=== PATIENT | male | born 1955 | race Caucasian/White ===

== ENCOUNTER 2018-12-12 22:02 | Emergency (ER) | payer OTHER ==
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
[2018-12-12] MEDS ORDERED: Sodium Chloride 0.9% 10 ML Syringe FLUSH PRN (23:31)
[2018-12-12] MEDS ORDERED: Furosemide 40 MG/4 ML VIAL IVPUSH ONE (23:31)
--- NOTE | 2018-12-12 23:31 | CRLCR ---
INDICATION: Shortness of breath and cough. TECHNIQUE: Chest 2 views COMPARISON: Chest x-ray 05/13/2007 FINDINGS: Cardiovascular and mediastinum: Heart size and vasculature are normal in caliber and appearance. Lungs and pleural spaces: Mild reticular interstitial prominence bilaterally as well as slight patchy and linear bibasilar airspace disease. Bones and soft tissues: No significant findings. IMPRESSION: Reticular interstitial prominence and patchy bibasilar airspace disease consistent with atelectasis or pneumonia. Dictated by Dariusz Reyes MD @ Dec 12 2018 11:26PM Signed by Dr. Dariusz Reyes @ Dec 12 2018 11:29PM
[2018-12-13] MEDS ORDERED: Losartan 50 MG Tab PO ONE (00:03)
[2018-12-13] MEDS ORDERED: Azithromycin 250 MG Tab PO ONE (00:04)
== END 2018-12-13 00:45 | disposition home or self-care (01) ==
LOC: JP.ED 22:02
DX: J40 Bronchitis, not specified as acute or chronic (principal); E87.70 Fluid overload, unspecified; E87.1 Hypo-osmolality and hyponatremia; I10 Essential (primary) hypertension; J44.9 Chronic obstructive pulmonary disease, unspecified; E66.01 Morbid (severe) obesity due to excess calories; Z79.899 Other long term (current) drug therapy; Z79.82 Long term (current) use of aspirin; Z68.42 Body mass index [BMI] 45.0-49.9, adult; Z79.51 Long term (current) use of inhaled steroids
CPT/HCPCS: 36415; 71046; 80048; 83880; 84484; 85027; 86140; 96374; 99284; A9270; J1940

== ENCOUNTER 2020-12-23 14:09 | Inpatient (IN) | payer OTHER ==
[2020-12-23] MEDS ORDERED: Sodium Chloride 0.9% 10 ML Syringe FLUSH PRN ×2 (14:13→14:48)
--- NOTE | 2020-12-23 14:33 | CT ---
Head wo Cont CLINICAL HISTORY: CVA COMPARISON: None TECHNIQUE: Transverse scans were obtained from the base of the skull through the vertex without IV contrast on a multislice, multidetector CT scanner. Auto dosage reduction and iterative reconstruction techniques employed. FINDINGS: There is moderate motion artifact despite repeat scanning. No focal abnormal parenchymal density is identified. There are scattered ill-defined hypodensities in the subcortical and periventricular white matter There is no mass effect, hemorrhage, or extraaxial collection. The basal cisterns and sulci over the convexities are prominent. The ventricles are normal for age. IMPRESSION: Very limited study due to motion artifact Age-related atrophy Chronic ischemic microvascular change No acute intracranial process identified
[2020-12-23] MEDS ORDERED: propofoL 100 ML ONE (14:34)
[2020-12-23] MEDS: propofoL 100 ML IV SCH ×4 (14:39→22:54)
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
[2020-12-23] MEDS ORDERED: Sodium Chloride 0.9% 100 ML IV ONE (14:48)
--- NOTE | 2020-12-23 14:48 | CR ---
CHEST: Portable 12/23/2020 at 2:43 PM CLINICAL HISTORY:Hypoxia COMPARISON:CT 2019 FINDINGS: There is moderate diffuse infiltrate in the left lower lobe. There is a lesser infiltrate in the right lower lobe and/or middle lobe. IMPRESSION: Moderate bilateral pneumonias, left greater than right
[2020-12-23] MEDS ORDERED: Heparin Sodium 5,000 Units/ML Vial ONE (14:50)
[2020-12-23] MEDS ORDERED: REMDESIVIR 200 MG in Sodium Chloride 0.9% 250 ML IV ONE (14:56)
[2020-12-23] MEDS ORDERED: Iopamidol 755 Mg/ML 100 ML Bottle IV SCH (15:00)
[2020-12-23] MEDS ORDERED: Dexamethasone 4 MG/ML SDV IVPUSH SCH (15:00)
[2020-12-23] MEDS ORDERED: Propofol 200 MG/20 ML SDV ONE (15:02)
[2020-12-23] MEDS ORDERED: Rocuronium 50 MG/5 ML Vial ONE (15:02)
[2020-12-23] MEDS ORDERED: Succinylcholine 200 MG/10 ML MDV ONE (15:02)
[2020-12-23] MEDS ORDERED: LORazepam 2 MG/ML SDV ONE (15:21)
[2020-12-23] MEDS ORDERED: LORazepam 2 MG/ML SDV IVPUSH ONE (15:26)
--- NOTE | 2020-12-23 15:29 | CR ---
CHEST: Portable 12/23/2020 and 3:24 PM CLINICAL HISTORY:Postintubation COMPARISON:Earlier same day FINDINGS: There is now near complete white out of the left lung. Endotracheal tube is seen in the distal third of the trachea. The tip is approximate 5 cm from the husam. Lesser diffuse right lung infiltrate is seen. Impression: Significant increase in left lung airspace disease with essential whiteout. Some of this is progressive infiltrate but significant volume loss possibly from mucous plugging is a consideration ET tube in good position
[2020-12-23] MEDS ORDERED: Vancomycin 2 GM in Sodium Chloride 0.9% 500 ML IV ONE (15:31)
[2020-12-23] MEDS ORDERED: Norepinephrine 8 MG in Dextrose 5% in Water 250 ML IV SCH ×2 (16:00)
[2020-12-23] MEDS: Norepinephrine 8 MG in Dextrose 5% in Water 242 ML IV SCH ×2 (16:20)
[2020-12-23] MEDS: Heparin Sodium 5,000 UNITS in Sodium Chloride 0.9% 500 ML IV SCH (16:43)
--- NOTE | 2020-12-23 16:52 | PCM.PRNOTE ---
- Free Text/Narrative Note: Date of service: 12/23/2020 Proposed procedure: right internal jugular triple-lumen catheter insertion with US Guidance Indication for procedure: Septic shock Indication: Septic shock, need for vascular access and vasopressor administration This procedure was performed in an emergent situation and consent was not o btained. Barrier precautions: cap, mask with face shield, sterile gown, sterile gloves, sterile US probe cover Description of the procedure: Patient is currently located in [place] [id number]. This is an emergent procedure. The patient was prepped and draped in a sterile fashion. The right internal jugular vein was identified using the linear probe of the ultrasound. Using the Seldinger technique a needle is introduced into the vein under direct visualization with the ultrasound. The wire was then introduced through the needle and the needle was removed. A small didier was made in the skin adjacent to the wire and the dilator probe was introduced over the wire and the tissue was dilated appropriately. The dilator was then removed and the catheter was inserted over the wire. The catheter was inserted to a depth of 17 cm. The wire was then withdrawn. Caps were placed and the ports were flushed. All 3 ports flushed easily. The catheter was sutured to the skin on the right side of the neck. The procedure was completed at this point and the neck was cleaned and a sterile dressing was applied. The patient tolerated the procedure well without any obvious complications. A portable chest x-ray confirmed placement of the tube in the distal superior vena cava. Jaime Austin MD
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
[2020-12-23] MEDS: Vancomycin 2 GM in Sodium Chloride 0.9% 500 ML IV SCH (17:24)
[2020-12-23] MEDS ORDERED: Ondansetron 4 MG Tab.DIS PO PRN (17:31)
[2020-12-23] MEDS ORDERED: Acetaminophen 325 MG Tab PO PRN (17:31)
[2020-12-23] MEDS ORDERED: Acetaminophen 650 MG Supp RECTAL PRN (17:31)
[2020-12-23] MEDS ORDERED: LORazepam 2 MG/ML SDV IVPUSH PRN (17:31)
[2020-12-23] MEDS ORDERED: Ondansetron 4 MG/2 ML SDV IV PRN (17:31)
[2020-12-23] MEDS ORDERED: fentaNYL 100 MCG/2 ML SDV IVPUSH PRN (17:31)
[2020-12-23] MEDS: Dimethicone 20%/Zinc Oxide 25% 56 GM Spray Bottle TOP PRN (18:49)
[2020-12-23] MEDS ORDERED: Levofloxacin/Dextrose 5%-Water 750 MG in Premix Bag 1 BAG IV SCH (20:00)
[2020-12-23] MEDS: Enoxaparin 40 MG/0.4 ML Syringe SUBCUT SCH (21:10)
[2020-12-23] MEDS: Pantoprazole 40 MG Vial IV SCH (21:11)
--- NOTE | 2020-12-23 22:55 | ANES ---
DATE OF SERVICE: 12/23/2020 INDICATION: Kulwant is a 65-year-old male, patient of Dr. Goodman Officer, in our emergency department in respiratory arrest. As stated before, he is in respiratory arrest, unable to respond to me at this time. Upon arrival, I find a 65-year-old, very obese male with significant skin lesions and definite abdominal hernia, in respiratory distress. TECHNIQUE: I prepared with the high oxygen flow, intubated him with a MAC 3 blade and #8 endotracheal tube to 24 at the lip that was secured prior to intubation. I noticed copious amount of multicolored sputum as well as dry blood in the airway. I had dosed him with 120 mg of propofol and 30 mg of Zemuron. After the tube was secured, I proceeded on to left radial art line. Site was cleansed and prepped in sterile fashion. A 20-gauge arterial catheter was placed to the left radial artery and secured with 2 Vicryl stitch. Good blood flow. It was then taped to the wrist with a Tegaderm placed over. He tolerated both procedures quite well. Please refer to nurse's notes for vital signs and neuro status throughout the procedure. Hugo Payne CRNA /[id number]
[2020-12-23] MEDS ORDERED: Sodium Chloride 0.9% 500 ML IV SCH (23:45)
[2020-12-23] MEDS ORDERED: Vasopressin 100 UNITS in Dextrose 5% in Water 250 ML IV SCH ×2 (23:45)
[2020-12-24] MEDS: propofoL 100 ML IV SCH ×8 (01:54→23:51)
[2020-12-24] MEDS: Vancomycin 2 GM in Sodium Chloride 0.9% 500 ML IV SCH (04:56)
[2020-12-24] MEDS ORDERED: Vancomycin 2 GM in Sodium Chloride 0.9% 500 ML IV SCH (05:00)
[2020-12-24] MEDS: Norepinephrine 8 MG in Dextrose 5% in Water 242 ML IV SCH ×2 (06:12)
[2020-12-24] MEDS: Sodium Chloride 0.9% 1,000 ML IV SCH (06:13)
[2020-12-24] MEDS: Pantoprazole 40 MG Vial IV SCH ×2 (08:42→20:31)
[2020-12-24] MEDS: Dimethicone 20%/Zinc Oxide 25% 56 GM Spray Bottle TOP PRN (09:24)
--- NOTE | 2020-12-24 09:49 | PCM.PN ---
- General Info Date of Service: 12/24/20 Subjective Update: No acute events overnight following intubation. FiO2 has been steadily weaned down overnight. He did require 2 vasopressors for a while but we have been able to start to wean these off. Urine output has been minimal. CVP is running between 12 and 15. He has not had any fevers. Secretions are decreasing. Gram stain of the respiratory sample from the endotracheal aspirate revealed gram- negative rods with culture pending. Creatinine has jumped up to 2.9 today. - Review of Systems General: Denies: Fever - Patient Data Vitals - Most Recent: Last Vital Signs Temp 36.4 C 12/24/20 09:00 Pulse 71 12/24/20 09:00 Resp 17 12/24/20 09:00 BP 120/49 L 12/24/20 09:00 Pulse Ox 97 12/24/20 09:00 Weight - Most Recent: 146.828 kg I&O - Last 24 Hours: Intake & Output 12/23/20 12/24/20 12/24/20 22:59 06:59 14:59 Intake Total 2191 50 Output Total 75 0 Balance 2116 50 Lab Results Last 24 Hours: Laboratory Results - last 24 hr 12/23/20 12/23/20 12/23/20 Range/Units 04:55 04:55 14:17 WBC (4.5-11.0) K/uL RBC (4.30-5.90) M/uL Hgb (12.0-15.0) g/dL Hct (40.0-54.0) % MCV (80-98) fL MCH (27-31) pg MCHC (32-36) % Plt Count (150-400) K/uL Add Manual Diff Neutrophils % (Manual) (36-66) % Band Neutrophils % (5-11) % Lymphocytes % (Manual) (24-44) % Monocytes % (Manual) (2-6) % Eosinophils % (Manual) (2-4) % Puncture Site left radial ABG pH 7.395 (7.350-7.450) ABG pCO2 37.9 (35.0-42.0) mmHg ABG pO2 42.2 L* (75.0-100.0) mmHg ABG HCO3 22.7 (22.0-26.0) mmol/L ABG Total CO2 20.1 L (23.0-27.0) mmol/L ABG O2 Saturation 73.0 L (95.0-98.0) % ABG O2 Content 14.4 L (15.0-23.0) %vol ABG Base Excess -1.3 mm/L ABG Hemoglobin 14.3 (13.5-18.0) g/dL ABG Oxyhemoglobin 71.8 % ABG Carboxyhemoglobin 1.0 (0.0-1.6) % ABG Methemoglobin 0.7 % Fredrick Test passed O2 Delivery Device Simple mask Oxygen Flow Rate L Sodium (140-148) mmol/L Potassium (3.6-5.2) mmol/L Chloride (100-108) mmol/L Carbon Dioxide (21-32) mmol/L Anion Gap (5.0-14.0) mmol/L BUN (7-18) mg/dL Creatinine (0.8-1.3) mg/dL Est Cr Clr Drug Dosing mL/min Estimated GFR (MDRD) (>60) Glucose (74-106) mg/dL Lactic Acid (0.4-2.0) mmol/L Calcium (8.5-10.1) mg/dL Total Bilirubin (0.2-1.0) mg/dL AST (15-37) U/L ALT (12-78) U/L Alkaline Phosphatase (46-116) U/L Creatine Kinase (39-308) U/L Troponin I (0.000-0.056) ng/mL C-Reactive Protein > 25.00 H (0.0-0.3) mg/dL Total Protein (6.4-8.2) g/dL Albumin (3.4-5.0) g/dL Globulin (2.3-3.5) g/dL Albumin/Globulin Ratio (1.2-2.2) Procalcitonin 5.69 H* ng/mL Urine Color (YELLOW) Urine Appearance (CLEAR) Urine pH (5.0-8.0) Ur Specific [place] (1.008-1.030) Urine Protein (NEGATIVE) mg/dL Urine Glucose (UA) (NEGATIVE) mg/dL Urine Ketones (NEGATIVE) mg/dL Urine Occult Blood (NEGATIVE) Urine Nitrite (NEGATIVE) Urine Bilirubin (NEGATIVE) Urine Urobilinogen (0.2-1.0) EU/dL Ur Leukocyte Esterase (NEGATIVE) Urine RBC (0-5) Urine WBC (0-5) Ur Epithelial Cells Amorphous Sediment Urine Bacteria Urine Mucus SARS CoV-2 RNA Rapid PARKER 12/23/20 12/23/20 12/23/20 Range/Units 14:45 14:45 14:45 WBC 16.4 H (4.5-11.0) K/uL RBC 4.68 (4.30-5.90) M/uL Hgb 14.2 (12.0-15.0) g/dL Hct 43.5 (40.0-54.0) % MCV 93 (80-98) fL MCH 30 (27-31) pg MCHC 33 (32-36) % Plt Count 115 L (150-400) K/uL Add Manual Diff Yes Neutrophils % (Manual) 86 H (36-66) % Band Neutrophils % 4 L (5-11) % Lymphocytes % (Manual) 4 L (24-44) % Monocytes % (Manual) 4 (2-6) % Eosinophils % (Manual) 2 (2-4) % Puncture Site ABG pH (7.350-7.450) ABG pCO2 (35.0-42.0) mmHg ABG pO2 (75.0-100.0) mmHg ABG HCO3 (22.0-26.0) mmol/L ABG Total CO2 (23.0-27.0) mmol/L ABG O2 Saturation (95.0-98.0) % ABG O2 Content (15.0-23.0) %vol ABG Base Excess mm/L ABG Hemoglobin (13.5-18.0) g/dL ABG Oxyhemoglobin % ABG Carboxyhemoglobin (0.0-1.6) % ABG Methemoglobin % Fredrick Test O2 Delivery Device Oxygen Flow Rate L Sodium 145 (140-148) mmol/L Potassium 4.6 (3.6-5.2) mmol/L Chloride 109 H (100-108) mmol/L Carbon Dioxide 23 (21-32) mmol/L Anion Gap 17.6 H (5.0-14.0) mmol/L BUN 38 H D (7-18) mg/dL Creatinine 1.5 H (0.8-1.3) mg/dL Est Cr Clr Drug Dosing 56.32 mL/min Estimated GFR (MDRD) 47 L (>60) Glucose 169 H (74-106) mg/dL Lactic Acid 2.6 H (0.4-2.0) mmol/L Calcium 8.3 L (8.5-10.1) mg/dL Total Bilirubin 0.7 (0.2-1.0) mg/dL AST 76 H (15-37) U/L ALT 48 (12-78) U/L Alkaline Phosphatase 74 (46-116) U/L Creatine Kinase (39-308) U/L Troponin I 0.029 (0.000-0.056) ng/mL C-Reactive Protein (0.0-0.3) mg/dL Total Protein 7.6 (6.4-8.2) g/dL Albumin 2.3 L (3.4-5.0) g/dL Globulin 5.3 H (2.3-3.5) g/dL Albumin/Globulin Ratio 0.4 L (1.2-2.2) Procalcitonin ng/mL Urine Color (YELLOW) Urine Appearance (CLEAR) Urine pH (5.0-8.0) Ur Specific [place] (1.008-1.030) Urine Protein (NEGATIVE) mg/dL Urine Glucose (UA) (NEGATIVE) mg/dL Urine Ketones (NEGATIVE) mg/dL Urine Occult Blood (NEGATIVE) Urine Nitrite (NEGATIVE) Urine Bilirubin (NEGATIVE) Urine Urobilinogen (0.2-1.0) EU/dL Ur Leukocyte Esterase (NEGATIVE) Urine RBC (0-5) Urine WBC (0-5) Ur Epithelial Cells Amorphous Sediment Urine Bacteria Urine Mucus SARS CoV-2 RNA Rapid PARKER 12/23/20 12/23/20 12/23/20 Range/Units 14:46 15:54 16:37 WBC (4.5-11.0) K/uL RBC (4.30-5.90) M/uL Hgb (12.0-15.0) g/dL Hct (40.0-54.0) % MCV (80-98) fL MCH (27-31) pg MCHC (32-36) % Plt Count (150-400) K/uL Add Manual Diff Neutrophils % (Manual) (36-66) % Band Neutrophils % (5-11) % Lymphocytes % (Manual) (24-44) % Monocytes % (Manual) (2-6) % Eosinophils % (Manual) (2-4) % Puncture Site line ABG pH 7.329 L (7.350-7.450) ABG pCO2 44.1 H (35.0-42.0) mmHg ABG pO2 98.4 (75.0-100.0) mmHg ABG HCO3 22.5 (22.0-26.0) mmol/L ABG Total CO2 20.4 L (23.0-27.0) mmol/L ABG O2 Saturation 96.4 (95.0-98.0) % ABG O2 Content 17.8 (15.0-23.0) %vol ABG Base Excess -2.9 mm/L ABG Hemoglobin 13.3 L (13.5-18.0) g/dL ABG Oxyhemoglobin 94.5 % ABG Carboxyhemoglobin 1.3 (0.0-1.6) % ABG Methemoglobin 0.7 % Fredrick Test tnp O2 Delivery Device Ventilator Oxygen Flow Rate 100.0 L Sodium (140-148) mmol/L Potassium (3.6-5.2) mmol/L Chloride (100-108) mmol/L Carbon Dioxide (21-32) mmol/L Anion Gap (5.0-14.0) mmol/L BUN (7-18) mg/dL Creatinine (0.8-1.3) mg/dL Est Cr Clr Drug Dosing mL/min Estimated GFR (MDRD) (>60) Glucose (74-106) mg/dL Lactic Acid (0.4-2.0) mmol/L Calcium (8.5-10.1) mg/dL Total Bilirubin (0.2-1.0) mg/dL AST (15-37) U/L ALT (12-78) U/L Alkaline Phosphatase (46-116) U/L Creatine Kinase (39-308) U/L Troponin I (0.000-0.056) ng/mL C-Reactive Protein (0.0-0.3) mg/dL Total Protein (6.4-8.2) g/dL Albumin (3.4-5.0) g/dL Globulin (2.3-3.5) g/dL Albumin/Globulin Ratio (1.2-2.2) Procalcitonin ng/mL Urine Color [place] A (YELLOW) Urine Appearance Slightly cloudy A (CLEAR) Urine pH 6.0 (5.0-8.0) Ur Specific [place] 1.025 (1.008-1.030) Urine Protein >=300 H (NEGATIVE) mg/dL Urine Glucose (UA) Negative (NEGATIVE) mg/dL Urine Ketones Negative (NEGATIVE) mg/dL Urine Occult Blood Large H (NEGATIVE) Urine Nitrite Negative (NEGATIVE) Urine Bilirubin Small H (NEGATIVE) Urine Urobilinogen 0.2 (0.2-1.0) EU/dL Ur Leukocyte Esterase Negative (NEGATIVE) Urine RBC 5-10 H (0-5) Urine WBC 5-10 H (0-5) Ur Epithelial Cells Moderate Amorphous Sediment Few Urine Bacteria Many Urine Mucus Moderate SARS CoV-2 RNA Rapid PARKER Positive H 12/23/20 12/23/20 12/23/20 Range/Units 16:37 17:00 19:00 WBC (4.5-11.0) K/uL RBC (4.30-5.90) M/uL Hgb (12.0-15.0) g/dL Hct (40.0-54.0) % MCV (80-98) fL MCH (27-31) pg MCHC (32-36) % Plt Count (150-400) K/uL Add Manual Diff Neutrophils % (Manual) (36-66) % Band Neutrophils % (5-11) % Lymphocytes % (Manual) (24-44) % Monocytes % (Manual) (2-6) % Eosinophils % (Manual) (2-4) % Puncture Site Line ABG pH 7.282 L (7.350-7.450) ABG pCO2 47.2 H (35.0-42.0) mmHg ABG pO2 99.4 (75.0-100.0) mmHg ABG HCO3 21.5 L (22.0-26.0) mmol/L ABG Total CO2 19.8 L (23.0-27.0) mmol/L ABG O2 Saturation 96.0 (95.0-98.0) % ABG O2 Content 17.2 (15.0-23.0) %vol ABG Base Excess -4.8 mm/L ABG Hemoglobin 12.8 L (13.5-18.0) g/dL ABG Oxyhemoglobin 94.6 % ABG Carboxyhemoglobin 0.6 (0.0-1.6) % ABG Methemoglobin 0.9 % Fredrick Test TNP O2 Delivery Device Ventilator Oxygen Flow Rate L Sodium (140-148) mmol/L Potassium (3.6-5.2) mmol/L Chloride (100-108) mmol/L Carbon Dioxide (21-32) mmol/L Anion Gap (5.0-14.0) mmol/L BUN (7-18) mg/dL Creatinine (0.8-1.3) mg/dL Est Cr Clr Drug Dosing mL/min Estimated GFR (MDRD) (>60) Glucose (74-106) mg/dL Lactic Acid 1.7 (0.4-2.0) mmol/L Calcium (8.5-10.1) mg/dL Total Bilirubin (0.2-1.0) mg/dL AST (15-37) U/L ALT (12-78) U/L Alkaline Phosphatase (46-116) U/L Creatine Kinase 463 H (39-308) U/L Troponin I (0.000-0.056) ng/mL C-Reactive Protein (0.0-0.3) mg/dL Total Protein (6.4-8.2) g/dL Albumin (3.4-5.0) g/dL Globulin (2.3-3.5) g/dL Albumin/Globulin Ratio (1.2-2.2) Procalcitonin ng/mL Urine Color (YELLOW) Urine Appearance (CLEAR) Urine pH (5.0-8.0) Ur Specific [place] (1.008-1.030) Urine Protein (NEGATIVE) mg/dL Urine Glucose (UA) (NEGATIVE) mg/dL Urine Ketones (NEGATIVE) mg/dL Urine Occult Blood (NEGATIVE) Urine Nitrite (NEGATIVE) Urine Bilirubin (NEGATIVE) Urine Urobilinogen (0.2-1.0) EU/dL Ur Leukocyte Esterase (NEGATIVE) Urine RBC (0-5) Urine WBC (0-5) Ur Epithelial Cells Amorphous Sediment Urine Bacteria Urine Mucus SARS CoV-2 RNA Rapid PARKER 12/23/20 12/24/20 12/24/20 Range/Units 21:00 00:25 05:00 WBC (4.5-11.0) K/uL RBC (4.30-5.90) M/uL Hgb (12.0-15.0) g/dL Hct (40.0-54.0) % MCV (80-98) fL MCH (27-31) pg MCHC (32-36) % Plt Count (150-400) K/uL Add Manual Diff Neutrophils % (Manual) (36-66) % Band Neutrophils % (5-11) % Lymphocytes % (Manual) (24-44) % Monocytes % (Manual) (2-6) % Eosinophils % (Manual) (2-4) % Puncture Site art line Line Line ABG pH 7.270 L 7.301 L 7.284 L (7.350-7.450) ABG pCO2 46.5 H 39.8 41.1 (35.0-42.0) mmHg ABG pO2 117.0 H 170.0 H 83.1 (75.0-100.0) mmHg ABG HCO3 20.7 L 19.1 L 18.9 L (22.0-26.0) mmol/L ABG Total CO2 19.1 L 17.5 L 17.4 L (23.0-27.0) mmol/L ABG O2 Saturation 97.5 98.8 H 95.1 (95.0-98.0) % ABG O2 Content 17.4 17.7 16.9 (15.0-23.0) %vol ABG Base Excess -5.8 -6.4 -6.9 mm/L ABG Hemoglobin 12.8 L 12.7 L 12.9 L (13.5-18.0) g/dL ABG Oxyhemoglobin 95.8 97.2 93.1 % ABG Carboxyhemoglobin 0.6 0.8 1.2 (0.0-1.6) % ABG Methemoglobin 1.1 0.8 0.9 % Fredrick Test N/a O2 Delivery Device Ventilator Ventilator Ventilator Oxygen Flow Rate L Sodium (140-148) mmol/L Potassium (3.6-5.2) mmol/L Chloride (100-108) mmol/L Carbon Dioxide (21-32) mmol/L Anion Gap (5.0-14.0) mmol/L BUN (7-18) mg/dL Creatinine (0.8-1.3) mg/dL Est Cr Clr Drug Dosing mL/min Estimated GFR (MDRD) (>60) Glucose (74-106) mg/dL Lactic Acid (0.4-2.0) mmol/L Calcium (8.5-10.1) mg/dL Total Bilirubin (0.2-1.0) mg/dL AST (15-37) U/L ALT (12-78) U/L Alkaline Phosphatase (46-116) U/L Creatine Kinase (39-308) U/L Troponin I (0.000-0.056) ng/mL C-Reactive Protein (0.0-0.3) mg/dL Total Protein (6.4-8.2) g/dL Albumin (3.4-5.0) g/dL Globulin (2.3-3.5) g/dL Albumin/Globulin Ratio (1.2-2.2) Procalcitonin ng/mL Urine Color (YELLOW) Urine Appearance (CLEAR) Urine pH (5.0-8.0) Ur Specific [place] (1.008-1.030) Urine Protein (NEGATIVE) mg/dL Urine Glucose (UA) (NEGATIVE) mg/dL Urine Ketones (NEGATIVE) mg/dL Urine Occult Blood (NEGATIVE) Urine Nitrite (NEGATIVE) Urine Bilirubin (NEGATIVE) Urine Urobilinogen (0.2-1.0) EU/dL Ur Leukocyte Esterase (NEGATIVE) Urine RBC (0-5) Urine WBC (0-5) Ur Epithelial Cells Amorphous Sediment Urine Bacteria Urine Mucus SARS CoV-2 RNA Rapid PARKER 12/24/20 12/24/20 12/24/20 Range/Units 05:00 05:00 05:00 WBC 23.5 H (4.5-11.0) K/uL RBC 4.33 (4.30-5.90) M/uL Hgb 12.6 (12.0-15.0) g/dL Hct 41.4 (40.0-54.0) % MCV 96 (80-98) fL MCH 29 (27-31) pg MCHC 30 L (32-36) % Plt Count 287 (150-400) K/uL Add Manual Diff Neutrophils % (Manual) (36-66) % Band Neutrophils % (5-11) % Lymphocytes % (Manual) (24-44) % Monocytes % (Manual) (2-6) % Eosinophils % (Manual) (2-4) % Puncture Site ABG pH (7.350-7.450) ABG pCO2 (35.0-42.0) mmHg ABG pO2 (75.0-100.0) mmHg ABG HCO3 (22.0-26.0) mmol/L ABG Total CO2 (23.0-27.0) mmol/L ABG O2 Saturation (95.0-98.0) % ABG O2 Content (15.0-23.0) %vol ABG Base Excess mm/L ABG Hemoglobin (13.5-18.0) g/dL ABG Oxyhemoglobin % ABG Carboxyhemoglobin (0.0-1.6) % ABG Methemoglobin % Fredrick Test O2 Delivery Device Oxygen Flow Rate L Sodium 142 (140-148) mmol/L Potassium 4.8 (3.6-5.2) mmol/L Chloride 108 (100-108) mmol/L Carbon Dioxide 19 L (21-32) mmol/L Anion Gap 19.8 H (5.0-14.0) mmol/L BUN 52 H (7-18) mg/dL Creatinine 2.9 H D (0.8-1.3) mg/dL Est Cr Clr Drug Dosing 29.14 mL/min Estimated GFR (MDRD) 22 L (>60) Glucose 204 H (74-106) mg/dL Lactic Acid 1.2 (0.4-2.0) mmol/L Calcium 7.9 L (8.5-10.1) mg/dL Total Bilirubin (0.2-1.0) mg/dL AST (15-37) U/L ALT (12-78) U/L Alkaline Phosphatase (46-116) U/L Creatine Kinase (39-308) U/L Troponin I < 0.017 (0.000-0.056) ng/mL C-Reactive Protein (0.0-0.3) mg/dL Total Protein (6.4-8.2) g/dL Albumin (3.4-5.0) g/dL Globulin (2.3-3.5) g/dL Albumin/Globulin Ratio (1.2-2.2) Procalcitonin ng/mL Urine Color (YELLOW) Urine Appearance (CLEAR) Urine pH (5.0-8.0) Ur Specific [place] (1.008-1.030) Urine Protein (NEGATIVE) mg/dL Urine Glucose (UA) (NEGATIVE) mg/dL Urine Ketones (NEGATIVE) mg/dL Urine Occult Blood (NEGATIVE) Urine Nitrite (NEGATIVE) Urine Bilirubin (NEGATIVE) Urine Urobilinogen (0.2-1.0) EU/dL Ur Leukocyte Esterase (NEGATIVE) Urine RBC (0-5) Urine WBC (0-5) Ur Epithelial Cells Amorphous Sediment Urine Bacteria Urine Mucus SARS CoV-2 RNA Rapid PARKER Juan Results Last 24 Hours: Microbiology 12/23/20 18:43 Gram Stain - Final Sputum - Other Med Orders - Current: Current Medications Acetaminophen (Acetaminophen 325 Mg Tab) 650 mg PO Q4H PRN PRN Reason: Pain (Mild 1-3)/fever Acetaminophen (Acetaminophen 650 Mg Supp) 650 mg RECTAL Q4H PRN PRN Reason: Mild pain/fever Dexamethasone (Dexamethasone 4 Mg/Ml Sdv) 6 mg IVPUSH Q24H [facility] Stop: 01/01/21 16:01 Dimethicone/Zinc Oxide (Dimethicone 20%/Zinc Oxide 25% 56 Gm [place] Bottle) 0 gm TOP ASDIRECTED PRN PRN Reason: Rash Last Admin: 12/24/20 09:24 Dose: 1 applic Documented by: Enoxaparin Sodium (Enoxaparin 40 Mg/0.4 Ml Syringe) 40 mg SUBCUT Q24H [facility] Last Admin: 12/23/20 21:10 Dose: 40 mg Documented by: Fentanyl (Fentanyl 100 Mcg/2 Ml Sdv) 25 mcg IVPUSH Q2H PRN PRN Reason: Pain Propofol (Diprivan 100 Ml) 100 mls @ 3.81 mls/hr IV TITRATE [facility]; Protocol Last Admin: 12/24/20 08:10 Dose: 40 mcg/kg/min, 30.481 mls/hr Documented by: Norepinephrine Bitartrate 8 mg (/ Dextrose/Water) 250 mls @ 3.75 mls/hr IV TITRATE [facility]; Protocol Last Infusion: 12/24/20 08:09 Dose: 7 mcg/min, 13.125 mls/hr Documented by: Heparin Sodium (Porcine) 5,000 (units/ Sodium Chloride) 501 mls @ 1 mls/hr IV ASDIRECTED [facility] Last Admin: 12/23/20 16:43 Dose: 1 mls/hr Documented by: Sodium Chloride (Normal Saline) 1,000 mls @ 25 mls/hr IV ASDIRECTED [facility] Last Admin: 12/24/20 06:13 Dose: 25 mls/hr Documented by: Vasopressin 100 units/ (Dextrose/Water) 255 mls @ 1.53 mls/hr IV TITRATE [facility]; Protocol Last Titration: 12/24/20 05:15 Dose: 0.01 units/min, 1.53 mls/hr Documented by: Ceftazidime 1 gm/ Sodium (Chloride) 50 mls @ 100 mls/hr IV Q12H [facility] Levofloxacin/Dextrose 750 mg/ (Premix) 150 mls @ 100 mls/hr IV Q48H [facility] Vancomycin HCl 2 gm/ Sodium (Chloride) 500 mls @ 250 mls/hr IV Q24H [facility] Heparin Sodium (Porcine) 5,000 (units/ Sodium Chloride) 501 mls @ 1 mls/hr IV ASDIRECTED [facility] Lorazepam (Lorazepam 2 Mg/Ml Sdv) 0.5 mg IVPUSH Q4H PRN PRN Reason: Nausea/Vomiting Ondansetron HCl (Ondansetron 4 Mg/2 Ml Sdv) 4 mg IV Q6H PRN PRN Reason: Nausea/Vomiting Ondansetron HCl (Ondansetron 4 Mg Tab.Dis) 4 mg PO Q6H PRN PRN Reason: Nausea able to take PO Pantoprazole Sodium (Pantoprazole 40 Mg Vial) 40 mg IV Q12H [facility] Last Admin: 12/24/20 08:42 Dose: 40 mg Documented by: Sodium Chloride (Sodium Chloride 0.9% 10 Ml Syringe) 10 ml FLUSH ASDIRECTED PRN PRN Reason: Keep Vein Open Discontinued Medications Dexamethasone (Dexamethasone 4 Mg/Ml Sdv) 6 mg IVPUSH DAILY [facility] Stop: 01/01/21 09:01 Last Admin: 12/23/20 16:32 Dose: 6 mg Documented by: Heparin Sodium (Porcine) (Heparin Sodium 5,000 Units/Ml Vial) Confirm Administered Dose 5,000 units .ROUTE .STK-MED ONE Stop: 12/23/20 14:51 Last Admin: 12/23/20 16:26 Dose: Not Given Documented by: Propofol (Diprivan 100 Ml) Confirm Administered Dose 100 mls @ as directed .ROUTE .STK-MED ONE Stop: 12/23/20 14:35 Last Admin: 12/23/20 14:39 Dose: Not Given Documented by: Sodium Chloride (Normal Saline) 100 mls @ 3 mls/sec IV ONETIME ONE Stop: 12/23/20 14:49 Last Admin: 12/23/20 16:26 Dose: Not Given Documented by: Remdesivir 200 mg/ Sodium (Chloride) 250 mls @ 250 mls/hr IV ONETIME ONE Stop: 12/23/20 14:57 Last Admin: 12/23/20 16:42 Dose: Not Given Documented by: Ceftazidime 1 gm/ Sodium (Chloride) 50 mls @ 100 mls/hr IV Q8H [facility] Stop: 12/24/20 09:30 Last Admin: 12/24/20 07:55 Dose: 100 mls/hr Documented by: Norepinephrine Bitartrate 8 mg (/ Dextrose/Water) 258 mls @ 3.87 mls/hr IV TITRATE [facility]; Protocol Vancomycin HCl 2 gm/ Sodium (Chloride) 500 mls @ 250 mls/hr IV Q12H [facility] Last Admin: 12/24/20 04:56 Dose: 250 mls/hr Documented by: Levofloxacin/Dextrose 750 mg/ (Premix) 150 mls @ 100 mls/hr IV Q24H [facility] Last Admin: 12/23/20 19:48 Dose: 100 mls/hr Documented by: Sodium Chloride (Normal Saline) 500 mls @ 500 mls/hr IV ASDIRECTED [facility] Stop: 12/24/20 00:46 Last Admin: 12/24/20 00:00 Dose: 500 mls/hr Documented by: Iopamidol (Iopamidol 755 Mg/Ml 100 Ml Bottle) 100 ml IV . DIRECTED [facility] Lorazepam (Lorazepam 2 Mg/Ml Sdv) Confirm Administered Dose 2 mg .ROUTE .STK-MED ONE Stop: 12/23/20 15:22 Last Admin: 12/23/20 15:49 Dose: Not Given Documented by: Lorazepam (Lorazepam 2 Mg/Ml Sdv) 2 mg IVPUSH ONETIME ONE Stop: 12/23/20 15:27 Last Admin: 12/23/20 15:28 Dose: 2 mg Documented by: Propofol (Propofol 200 Mg/20 Ml Sdv) Confirm Administered Dose 200 mg .ROUTE .STK-MED ONE Stop: 12/23/20 15:03 Rocuronium [place] (Rocuronium 50 Mg/5 Ml Vial) Confirm Administered Dose 50 mg .ROUTE .STK-MED ONE Stop: 12/23/20 15:03 Sodium Chloride (Sodium Chloride 0.9% 10 Ml Syringe) 10 ml FLUSH ONETIME PRN PRN Reason: PER RADIOLOGY PROTOCOL Succinylcholine Chloride (Succinylcholine 200 Mg/10 Ml Mdv) Confirm Administered Dose 0 mg .ROUTE .STK-MED ONE Stop: 12/23/20 15:03 - Exam Quality Assessment: Supplemental Oxygen Urinary Catheter Total Time: 0Days 9Hours General: No Acute Distress, Sedated. No: Alert HEENT: Pupils Equal Lungs: Decreased Breath Sounds (both bases), Crackles (both bases left > right ). No: Normal Respiratory Effort, Wheezing Cardiovascular: Regular Rate, Regular Rhythm GI/Abdominal Exam: Soft, No Distention, Other (large umbilical hernia ) Extremities: No Pedal Edema. No: Increased Warmth Skin: Warm, Dry, Rash (chronic venous stasis both lower legs) Wound/Incisions: Other (right IJ central line with no erythema or bleeding ) Psy/Mental Status: No: Alert, Agitated - Patient Data Lab Results Last 24 hrs: Laboratory Results - last 24 hr 12/23/20 12/23/20 12/23/20 Range/Units 04:55 04:55 14:17 WBC (4.5-11.0) K/uL RBC (4.30-5.90) M/uL Hgb (12.0-15.0) g/dL Hct (40.0-54.0) % MCV (80-98) fL MCH (27-31) pg MCHC (32-36) % Plt Count (150-400) K/uL Add Manual Diff Neutrophils % (Manual) (36-66) % Band Neutrophils % (5-11) % Lymphocytes % (Manual) (24-44) % Monocytes % (Manual) (2-6) % Eosinophils % (Manual) (2-4) % Puncture Site left radial ABG pH 7.395 (7.350-7.450) ABG pCO2 37.9 (35.0-42.0) mmHg ABG pO2 42.2 L* (75.0-100.0) mmHg ABG HCO3 22.7 (22.0-26.0) mmol/L ABG Total CO2 20.1 L (23.0-27.0) mmol/L ABG O2 Saturation 73.0 L (95.0-98.0) % ABG O2 Content 14.4 L (15.0-23.0) %vol ABG Base Excess -1.3 mm/L ABG Hemoglobin 14.3 (13.5-18.0) g/dL ABG Oxyhemoglobin 71.8 % ABG Carboxyhemoglobin 1.0 (0.0-1.6) % ABG Methemoglobin 0.7 % Fredrick Test passed O2 Delivery Device Simple mask Oxygen Flow Rate L Sodium (140-148) mmol/L Potassium (3.6-5.2) mmol/L Chloride (100-108) mmol/L Carbon Dioxide (21-32) mmol/L Anion Gap (5.0-14.0) mmol/L BUN (7-18) mg/dL Creatinine (0.8-1.3) mg/dL Est Cr Clr Drug Dosing mL/min Estimated GFR (MDRD) (>60) Glucose (74-106) mg/dL Lactic Acid (0.4-2.0) mmol/L Calcium (8.5-10.1) mg/dL Total Bilirubin (0.2-1.0) mg/dL AST (15-37) U/L ALT (12-78) U/L Alkaline Phosphatase (46-116) U/L Creatine Kinase (39-308) U/L Troponin I (0.000-0.056) ng/mL C-Reactive Protein > 25.00 H (0.0-0.3) mg/dL Total Protein (6.4-8.2) g/dL Albumin (3.4-5.0) g/dL Globulin (2.3-3.5) g/dL Albumin/Globulin Ratio (1.2-2.2) Procalcitonin 5.69 H* ng/mL Urine Color (YELLOW) Urine Appearance (CLEAR) Urine pH (5.0-8.0) Ur Specific [place] (1.008-1.030) Urine Protein (NEGATIVE) mg/dL Urine Glucose (UA) (NEGATIVE) mg/dL Urine Ketones (NEGATIVE) mg/dL Urine Occult Blood (NEGATIVE) Urine Nitrite (NEGATIVE) Urine Bilirubin (NEGATIVE) Urine Urobilinogen (0.2-1.0) EU/dL Ur Leukocyte Esterase (NEGATIVE) Urine RBC (0-5) Urine WBC (0-5) Ur Epithelial Cells Amorphous Sediment Urine Bacteria Urine Mucus SARS CoV-2 RNA Rapid PARKER 12/23/20 12/23/20 12/23/20 Range/Units 14:45 14:45 14:45 WBC 16.4 H (4.5-11.0) K/uL RBC 4.68 (4.30-5.90) M/uL Hgb 14.2 (12.0-15.0) g/dL Hct 43.5 (40.0-54.0) % MCV 93 (80-98) fL MCH 30 (27-31) pg MCHC 33 (32-36) % Plt Count 115 L (150-400) K/uL Add Manual Diff Yes Neutrophils % (Manual) 86 H (36-66) % Band Neutrophils % 4 L (5-11) % Lymphocytes % (Manual) 4 L (24-44) % Monocytes % (Manual) 4 (2-6) % Eosinophils % (Manual) 2 (2-4) % Puncture Site ABG pH (7.350-7.450) ABG pCO2 (35.0-42.0) mmHg ABG pO2 (75.0-100.0) mmHg ABG HCO3 (22.0-26.0) mmol/L ABG Total CO2 (23.0-27.0) mmol/L ABG O2 Saturation (95.0-98.0) % ABG O2 Content (15.0-23.0) %vol ABG Base Excess mm/L ABG Hemoglobin (13.5-18.0) g/dL ABG Oxyhemoglobin % ABG Carboxyhemoglobin (0.0-1.6) % ABG Methemoglobin % Fredrick Test O2 Delivery Device Oxygen Flow Rate L Sodium 145 (140-148) mmol/L Potassium 4.6 (3.6-5.2) mmol/L Chloride 109 H (100-108) mmol/L Carbon Dioxide 23 (21-32) mmol/L Anion Gap 17.6 H (5.0-14.0) mmol/L BUN 38 H D (7-18) mg/dL Creatinine 1.5 H (0.8-1.3) mg/dL Est Cr Clr Drug Dosing 56.32 mL/min Estimated GFR (MDRD) 47 L (>60) Glucose 169 H (74-106) mg/dL Lactic Acid 2.6 H (0.4-2.0) mmol/L Calcium 8.3 L (8.5-10.1) mg/dL Total Bilirubin 0.7 (0.2-1.0) mg/dL AST 76 H (15-37) U/L ALT 48 (12-78) U/L Alkaline Phosphatase 74 (46-116) U/L Creatine Kinase (39-308) U/L Troponin I 0.029 (0.000-0.056) ng/mL C-Reactive Protein (0.0-0.3) mg/dL Total Protein 7.6 (6.4-8.2) g/dL Albumin 2.3 L (3.4-5.0) g/dL Globulin 5.3 H (2.3-3.5) g/dL Albumin/Globulin Ratio 0.4 L (1.2-2.2) Procalcitonin ng/mL Urine Color (YELLOW) Urine Appearance (CLEAR) Urine pH (5.0-8.0) Ur Specific [place] (1.008-1.030) Urine Protein (NEGATIVE) mg/dL Urine Glucose (UA) (NEGATIVE) mg/dL Urine Ketones (NEGATIVE) mg/dL Urine Occult Blood (NEGATIVE) Urine Nitrite (NEGATIVE) Urine Bilirubin (NEGATIVE) Urine Urobilinogen (0.2-1.0) EU/dL Ur Leukocyte Esterase (NEGATIVE) Urine RBC (0-5) Urine WBC (0-5) Ur Epithelial Cells Amorphous Sediment Urine Bacteria Urine Mucus SARS CoV-2 RNA Rapid PARKER 12/23/20 12/23/20 12/23/20 Range/Units 14:46 15:54 16:37 WBC (4.5-11.0) K/uL RBC (4.30-5.90) M/uL Hgb (12.0-15.0) g/dL Hct (40.0-54.0) % MCV (80-98) fL MCH (27-31) pg MCHC (32-36) % Plt Count (150-400) K/uL Add Manual Diff Neutrophils % (Manual) (36-66) % Band Neutrophils % (5-11) % Lymphocytes % (Manual) (24-44) % Monocytes % (Manual) (2-6) % Eosinophils % (Manual) (2-4) % Puncture Site line ABG pH 7.329 L (7.350-7.450) ABG pCO2 44.1 H (35.0-42.0) mmHg ABG pO2 98.4 (75.0-100.0) mmHg ABG HCO3 22.5 (22.0-26.0) mmol/L ABG Total CO2 20.4 L (23.0-27.0) mmol/L ABG O2 Saturation 96.4 (95.0-98.0) % ABG O2 Content 17.8 (15.0-23.0) %vol ABG Base Excess -2.9 mm/L ABG Hemoglobin 13.3 L (13.5-18.0) g/dL ABG Oxyhemoglobin 94.5 % ABG Carboxyhemoglobin 1.3 (0.0-1.6) % ABG Methemoglobin 0.7 % Fredrick Test tnp O2 Delivery Device Ventilator Oxygen Flow Rate 100.0 L Sodium (140-148) mmol/L Potassium (3.6-5.2) mmol/L Chloride (100-108) mmol/L Carbon Dioxide (21-32) mmol/L Anion Gap (5.0-14.0) mmol/L BUN (7-18) mg/dL Creatinine (0.8-1.3) mg/dL Est Cr Clr Drug Dosing mL/min Estimated GFR (MDRD) (>60) Glucose (74-106) mg/dL Lactic Acid (0.4-2.0) mmol/L Calcium (8.5-10.1) mg/dL Total Bilirubin (0.2-1.0) mg/dL AST (15-37) U/L ALT (12-78) U/L Alkaline Phosphatase (46-116) U/L Creatine Kinase (39-308) U/L Troponin I (0.000-0.056) ng/mL C-Reactive Protein (0.0-0.3) mg/dL Total Protein (6.4-8.2) g/dL Albumin (3.4-5.0) g/dL Globulin (2.3-3.5) g/dL Albumin/Globulin Ratio (1.2-2.2) Procalcitonin ng/mL Urine Color [place] A (YELLOW) Urine Appearance Slightly cloudy A (CLEAR) Urine pH 6.0 (5.0-8.0) Ur Specific [place] 1.025 (1.008-1.030) Urine Protein >=300 H (NEGATIVE) mg/dL Urine Glucose (UA) Negative (NEGATIVE) mg/dL Urine Ketones Negative (NEGATIVE) mg/dL Urine Occult Blood Large H (NEGATIVE) Urine Nitrite Negative (NEGATIVE) Urine Bilirubin Small H (NEGATIVE) Urine Urobilinogen 0.2 (0.2-1.0) EU/dL Ur Leukocyte Esterase Negative (NEGATIVE) Urine RBC 5-10 H (0-5) Urine WBC 5-10 H (0-5) Ur Epithelial Cells Moderate Amorphous Sediment Few Urine Bacteria Many Urine Mucus Moderate SARS CoV-2 RNA Rapid PARKER Positive H 12/23/20 12/23/20 12/23/20 Range/Units 16:37 17:00 19:00 WBC (4.5-11.0) K/uL RBC (4.30-5.90) M/uL Hgb (12.0-15.0) g/dL Hct (40.0-54.0) % MCV (80-98) fL MCH (27-31) pg MCHC (32-36) % Plt Count (150-400) K/uL Add Manual Diff Neutrophils % (Manual) (36-66) % Band Neutrophils % (5-11) % Lymphocytes % (Manual) (24-44) % Monocytes % (Manual) (2-6) % Eosinophils % (Manual) (2-4) % Puncture Site Line ABG pH 7.282 L (7.350-7.450) ABG pCO2 47.2 H (35.0-42.0) mmHg ABG pO2 99.4 (75.0-100.0) mmHg ABG HCO3 21.5 L (22.0-26.0) mmol/L ABG Total CO2 19.8 L (23.0-27.0) mmol/L ABG O2 Saturation 96.0 (95.0-98.0) % ABG O2 Content 17.2 (15.0-23.0) %vol ABG Base Excess -4.8 mm/L ABG Hemoglobin 12.8 L (13.5-18.0) g/dL ABG Oxyhemoglobin 94.6 % ABG Carboxyhemoglobin 0.6 (0.0-1.6) % ABG Methemoglobin 0.9 % Fredrick Test TNP O2 Delivery Device Ventilator Oxygen Flow Rate L Sodium (140-148) mmol/L Potassium (3.6-5.2) mmol/L Chloride (100-108) mmol/L Carbon Dioxide (21-32) mmol/L Anion Gap (5.0-14.0) mmol/L BUN (7-18) mg/dL Creatinine (0.8-1.3) mg/dL Est Cr Clr Drug Dosing mL/min Estimated GFR (MDRD) (>60) Glucose (74-106) mg/dL Lactic Acid 1.7 (0.4-2.0) mmol/L Calcium (8.5-10.1) mg/dL Total Bilirubin (0.2-1.0) mg/dL AST (15-37) U/L ALT (12-78) U/L Alkaline Phosphatase (46-116) U/L Creatine Kinase 463 H (39-308) U/L Troponin I (0.000-0.056) ng/mL C-Reactive Protein (0.0-0.3) mg/dL Total Protein (6.4-8.2) g/dL Albumin (3.4-5.0) g/dL Globulin (2.3-3.5) g/dL Albumin/Globulin Ratio (1.2-2.2) Procalcitonin ng/mL Urine Color (YELLOW) Urine Appearance (CLEAR) Urine pH (5.0-8.0) Ur Specific [place] (1.008-1.030) Urine Protein (NEGATIVE) mg/dL Urine Glucose (UA) (NEGATIVE) mg/dL Urine Ketones (NEGATIVE) mg/dL Urine Occult Blood (NEGATIVE) Urine Nitrite (NEGATIVE) Urine Bilirubin (NEGATIVE) Urine Urobilinogen (0.2-1.0) EU/dL Ur Leukocyte Esterase (NEGATIVE) Urine RBC (0-5) Urine WBC (0-5) Ur Epithelial Cells Amorphous Sediment Urine Bacteria Urine Mucus SARS CoV-2 RNA Rapid PARKER 12/23/20 12/24/20 12/24/20 Range/Units 21:00 00:25 05:00 WBC (4.5-11.0) K/uL RBC (4.30-5.90) M/uL Hgb (12.0-15.0) g/dL Hct (40.0-54.0) % MCV (80-98) fL MCH (27-31) pg MCHC (32-36) % Plt Count (150-400) K/uL Add Manual Diff Neutrophils % (Manual) (36-66) % Band Neutrophils % (5-11) % Lymphocytes % (Manual) (24-44) % Monocytes % (Manual) (2-6) % Eosinophils % (Manual) (2-4) % Puncture Site art line Line Line ABG pH 7.270 L 7.301 L 7.284 L (7.350-7.450) ABG pCO2 46.5 H 39.8 41.1 (35.0-42.0) mmHg ABG pO2 117.0 H 170.0 H 83.1 (75.0-100.0) mmHg ABG HCO3 20.7 L 19.1 L 18.9 L (22.0-26.0) mmol/L ABG Total CO2 19.1 L 17.5 L 17.4 L (23.0-27.0) mmol/L ABG O2 Saturation 97.5 98.8 H 95.1 (95.0-98.0) % ABG O2 Content 17.4 17.7 16.9 (15.0-23.0) %vol ABG Base Excess -5.8 -6.4 -6.9 mm/L ABG Hemoglobin 12.8 L 12.7 L 12.9 L (13.5-18.0) g/dL ABG Oxyhemoglobin 95.8 97.2 93.1 % ABG Carboxyhemoglobin 0.6 0.8 1.2 (0.0-1.6) % ABG Methemoglobin 1.1 0.8 0.9 % Fredrick Test N/a O2 Delivery Device Ventilator Ventilator Ventilator Oxygen Flow Rate L Sodium (140-148) mmol/L Potassium (3.6-5.2) mmol/L Chloride (100-108) mmol/L Carbon Dioxide (21-32) mmol/L Anion Gap (5.0-14.0) mmol/L BUN (7-18) mg/dL Creatinine (0.8-1.3) mg/dL Est Cr Clr Drug Dosing mL/min Estimated GFR (MDRD) (>60) Glucose (74-106) mg/dL Lactic Acid (0.4-2.0) mmol/L Calcium (8.5-10.1) mg/dL Total Bilirubin (0.2-1.0) mg/dL AST (15-37) U/L ALT (12-78) U/L Alkaline Phosphatase (46-116) U/L Creatine Kinase (39-308) U/L Troponin I (0.000-0.056) ng/mL C-Reactive Protein (0.0-0.3) mg/dL Total Protein (6.4-8.2) g/dL Albumin (3.4-5.0) g/dL Globulin (2.3-3.5) g/dL Albumin/Globulin Ratio (1.2-2.2) Procalcitonin ng/mL Urine Color (YELLOW) Urine Appearance (CLEAR) Urine pH (5.0-8.0) Ur Specific [place] (1.008-1.030) Urine Protein (NEGATIVE) mg/dL Urine Glucose (UA) (NEGATIVE) mg/dL Urine Ketones (NEGATIVE) mg/dL Urine Occult Blood (NEGATIVE) Urine Nitrite (NEGATIVE) Urine Bilirubin (NEGATIVE) Urine Urobilinogen (0.2-1.0) EU/dL Ur Leukocyte Esterase (NEGATIVE) Urine RBC (0-5) Urine WBC (0-5) Ur Epithelial Cells Amorphous Sediment Urine Bacteria Urine Mucus SARS CoV-2 RNA Rapid PARKER 12/24/20 12/24/20 12/24/20 Range/Units 05:00 05:00 05:00 WBC 23.5 H (4.5-11.0) K/uL RBC 4.33 (4.30-5.90) M/uL Hgb 12.6 (12.0-15.0) g/dL Hct 41.4 (40.0-54.0) % MCV 96 (80-98) fL MCH 29 (27-31) pg MCHC 30 L (32-36) % Plt Count 287 (150-400) K/uL Add Manual Diff Neutrophils % (Manual) (36-66) % Band Neutrophils % (5-11) % Lymphocytes % (Manual) (24-44) % Monocytes % (Manual) (2-6) % Eosinophils % (Manual) (2-4) % Puncture Site ABG pH (7.350-7.450) ABG pCO2 (35.0-42.0) mmHg ABG pO2 (75.0-100.0) mmHg ABG HCO3 (22.0-26.0) mmol/L ABG Total CO2 (23.0-27.0) mmol/L ABG O2 Saturation (95.0-98.0) % ABG O2 Content (15.0-23.0) %vol ABG Base Excess mm/L ABG Hemoglobin (13.5-18.0) g/dL ABG Oxyhemoglobin % ABG Carboxyhemoglobin (0.0-1.6) % ABG Methemoglobin % Fredrick Test O2 Delivery Device Oxygen Flow Rate L Sodium 142 (140-148) mmol/L Potassium 4.8 (3.6-5.2) mmol/L Chloride 108 (100-108) mmol/L Carbon Dioxide 19 L (21-32) mmol/L Anion Gap 19.8 H (5.0-14.0) mmol/L BUN 52 H (7-18) mg/dL Creatinine 2.9 H D (0.8-1.3) mg/dL Est Cr Clr Drug Dosing 29.14 mL/min Estimated GFR (MDRD) 22 L (>60) Glucose 204 H (74-106) mg/dL Lactic Acid 1.2 (0.4-2.0) mmol/L Calcium 7.9 L (8.5-10.1) mg/dL Total Bilirubin (0.2-1.0) mg/dL AST (15-37) U/L ALT (12-78) U/L Alkaline Phosphatase (46-116) U/L Creatine Kinase (39-308) U/L Troponin I < 0.017 (0.000-0.056) ng/mL C-Reactive Protein (0.0-0.3) mg/dL Total Protein (6.4-8.2) g/dL Albumin (3.4-5.0) g/dL Globulin (2.3-3.5) g/dL Albumin/Globulin Ratio (1.2-2.2) Procalcitonin ng/mL Urine Color (YELLOW) Urine Appearance (CLEAR) Urine pH (5.0-8.0) Ur Specific [place] (1.008-1.030) Urine Protein (NEGATIVE) mg/dL Urine Glucose (UA) (NEGATIVE) mg/dL Urine Ketones (NEGATIVE) mg/dL Urine Occult Blood (NEGATIVE) Urine Nitrite (NEGATIVE) Urine Bilirubin (NEGATIVE) Urine Urobilinogen (0.2-1.0) EU/dL Ur Leukocyte Esterase (NEGATIVE) Urine RBC (0-5) Urine WBC (0-5) Ur Epithelial Cells Amorphous Sediment Urine Bacteria Urine Mucus SARS CoV-2 RNA Rapid PARKER Result Diagrams: 12/24/20 05:00 12/24/20 05:00 Juan Results Last 24 hrs: Microbiology 12/23/20 18:43 Gram Stain - Final Sputum - Other Sepsis Event Note - Evaluation Sepsis Screening Result: Possible Sepsis Risk - Focused Exam Vital Signs: Vital Signs Temp Pulse Resp BP Pulse Ox 12/24/20 09:00 36.4 C 71 17 120/49 L 97 12/24/20 08:00 36.6 C 74 17 125/51 L 95 12/24/20 07:00 75 17 115/54 L 97 12/24/20 06:00 36.3 C 80 19 111/62 97 12/24/20 05:00 77 19 144/41 H 95 12/24/20 04:00 82 19 106/34 L 96 12/24/20 03:00 82 19 116/48 L 97 12/24/20 02:00 36.2 C 79 20 106/50 L 98 12/24/20 01:00 36.2 C 81 19 90/57 L 99 12/24/20 00:00 36.2 C 92 20 87/51 L 98 12/23/20 23:00 90 18 106/45 L 99 12/23/20 22:00 36.2 C 91 20 81/30 L 99 - Problem List & Annotations (1) Bilateral pneumonia SNOMED Code(s): 012898041 Code(s): J18.9 - PNEUMONIA, UNSPECIFIED ORGANISM Status: Acute Current Visit: Yes Qualifiers: Pneumonia type: due to unspecified organism Lung location: unspecified part of lung Qualified Code(s): J18.9 - Pneumonia, unspecified organism (2) Septic shock SNOMED Code(s): 75679206 Code(s): A41.9 - SEPSIS, UNSPECIFIED ORGANISM; R65.21 - SEVERE SEPSIS WITH SEPTIC SHOCK Status: Acute Current Visit: Yes (3) Acute respiratory failure with hypoxia SNOMED Code(s): 64981595, 114631440 Code(s): J96.01 - ACUTE RESPIRATORY FAILURE WITH HYPOXIA Status: Acute Current Visit: Yes (4) Pneumonia due to COVID-19 virus SNOMED Code(s): 947646968268966390 Code(s): U07.1 - COVID-19; J12.82 - PNEUMONIA DUE TO CORONAVIRUS DISEASE 2019 Status: Acute Current Visit: Yes (5) Atrial fibrillation SNOMED Code(s): 68968235 Code(s): I48.91 - UNSPECIFIED ATRIAL FIBRILLATION Status: Chronic Current Visit: Yes Qualifiers: Atrial fibrillation type: unspecified Qualified Code(s): I48.91 - Unspe cified atrial fibrillation (6) Chronic obstructive pulmonary disease (COPD) SNOMED Code(s): 37264901 Code(s): J44.9 - CHRONIC OBSTRUCTIVE PULMONARY DISEASE, UNSPECIFIED Status: Chronic Current Visit: No Qualifiers: COPD type: unspecified COPD Qualified Code(s): J44.9 - Chronic obstructive pulmonary disease, unspecified (7) Acute kidney injury SNOMED Code(s): 98063047, 53015629 Code(s): N17.9 - ACUTE KIDNEY FAILURE, UNSPECIFIED Status: Acute Current Visit: Yes - Problem List Review Problem List Initiated/Reviewed/Updated: Yes - My Orders Last 24 Hours: My Active Orders 12/23/20 16:39 CXR [Chest 1V Frontal] [CR] Stat 12/23/20 16:42 Resuscitation Status Routine 12/23/20 Dinner Nothing per Oral Now Diet [DIET] 12/23/20 17:31 Acetaminophen [TylenoL] 650 mg PO Q4H PRN Acetaminophen [Tylenol] 650 mg RECTAL Q4H PRN Dimethicone/Zinc Oxide [Rash Relief-Zinc Oxide [place]] 0 gm TOP ASDIRECTED PRN LORazepam [Ativan] 0.5 mg IVPUSH Q4H PRN Ondansetron [Zofran ODT] 4 mg PO Q6H PRN Ondansetron [Zofran] 4 mg IV Q6H PRN Sodium Chloride 0.9% [Normal Saline] 1,000 ml IV ASDIRECTED fentaNYL [Sublimaze] 25 mcg IVPUSH Q2H PRN 12/23/20 17:31 Patient Status [ADT] Routine Bedrest Bedside Commode [RC] ASDIRECTED Cardiac Monitoring [RC] Q6H Intake and Output [RC] QSHIFT Mechanical Ventilation [RT Ventilator, Adult] [RC] Q2H Notify Provider Vital Signs [RC] ASDIRECTED Nrsg Assess Restraint Init/Mon [RC] Q1H Oxygen Therapy [RC] PRN Pulse Oximetry [RC] CONTINUOUS VTE/DVT Education [RC] Per Unit Routine Vital Signs [RC] Q1HR Isolation [COMM] Routine 12/23/20 17:56 Arterial Line Management [OM.PC] Routine CVP Monitoring [Monitor Central Venous Pressure] [OM.PC] Routine 12/23/20 18:43 CULTURE RESPIRATORY + SMEAR [RM] Routine 12/23/20 21:00 Enoxaparin [Lovenox] 40 mg SUBCUT Q24H Pantoprazole [ProTONIX IV] 40 mg IV Q12H 12/23/20 23:45 Vasopressin 100 units Dextrose 5% in Water 250 ml IV TITRATE 12/24/20 09:47 Initiate/Renew Non-Violent Restraints (All Ages) Q24H 12/24/20 12:00 BLOOD GAS ARTERIAL [BG] Timed 12/25/20 05:00 BLOOD GAS ARTERIAL [BG] Timed CBC W/O DIFF,HEMOGRAM [HEME] Timed (1) COMPREHENSIVE METABOLIC PN,CMP [CHEM] Timed MAGNESIUM [CHEM] Timed 12/25/20 20:00 Levofloxacin/Dextrose 5%-Water [Levaquin in D5W 750 MG/150 ML] 750 mg Premix Bag 1 bag IV Q48H - Plan Plan:: ASSESSMENT AND PLAN - Bilateral pneumonia-complicated by acute respiratory failure with hypoxia and septic shock. Still requiring vasopressors but respiratory status is improving. FiO2 is being weaned. Plan to start weaning the PEEP next. Secretions are decreasing. Gram stain from respiratory culture with gram-negative rods but identification is pending. Plateau pressure this morning was in the upper 20s. -Broad-spectrum antibiotic coverage with levofloxacin, meropenem and vancomycin -Mechanical ventilation -Propofol for sedation and lorazepam and or fentanyl for breakthrough agitation -Follow-up sputum culture -Repeat blood gases following ventilator changes and in the morning -Continue steroids COVID-19 positive-unclear timing of symptoms. I suspect Covid was more remote in the history and he had a bacterial pneumonia on the tail end leading to his acute illness currently. -Continue dexamethasone (day 2) -Covid precautions -Additional management as above Acute kidney injury-significant jump in creatinine from 1.5-2.9. Urine output has been minimal. CVP is between 12 and 15 but often closer to 15. Did not respond to furosemide this morning. -Trial of bumetanide History of COPD-patient currently intubated and sedated. -Management as above History of atrial fibrillation-not chronically anticoagulated. Heart rate normal. -Rate control as needed -Cardiac monitoring Maintenance issues - -DVT prophylaxis-enoxaparin -GI prophylaxis-PPI -Nutrition-nothing by mouth -Akins catheter-inserted for strict intake and output monitoring in a critical patient Disposition -I anticipate discharge home after the hospital stay Primary care physician -MD Jaime Castañeda M.D.
[2020-12-24] MEDS: Heparin Sodium 5,000 UNITS in Sodium Chloride 0.9% 500 ML IV SCH (10:03)
[2020-12-24] MEDS ORDERED: Furosemide 40 MG/4 ML VIAL IVPUSH ONE (11:00)
[2020-12-24] MEDS ORDERED: Bumetanide 1 MG/4 ML MDV IVPUSH ONE (13:48)
[2020-12-24] MEDS ORDERED: Bumetanide 2.5 MG, Bumetanide 0.5 MG IVPUSH ONE ×2 (14:00)
[2020-12-24] MEDS: Dexamethasone 4 MG/ML SDV IVPUSH SCH (16:02)
[2020-12-24] MEDS ORDERED: Sodium Chloride 0.9% 500 ML IV SCH (16:30)
[2020-12-24] MEDS ORDERED: Bumetanide 2.5 MG/10 ML MDV IVPUSH ONE (18:00)
[2020-12-24] MEDS ORDERED: Vasopressin 40 UNITS in Dextrose 5% in Water 100 ML IV SCH ×2 (18:00)
[2020-12-24] MEDS: Enoxaparin 40 MG/0.4 ML Syringe SUBCUT SCH (20:36)
[2020-12-25] MEDS: propofoL 100 ML IV SCH ×9 (01:45→23:48)
[2020-12-25] MEDS ORDERED: Vancomycin 2 GM in Sodium Chloride 0.9% 500 ML IV SCH (06:00)
--- NOTE | 2020-12-25 09:21 | PCM.PN ---
- General Info Date of Service: 12/25/20 Subjective Update: No acute events overnight. The patient remains intubated and sedated. Urine output did tow picker after a fluid challenge followed by 4 mg of bumetanide. Urine output borderline this morning. No fevers. We have been able to wean the FiO2 down to 35% and have been working on decreasing the PEEP. Chest x-ray shows some clearing but still a large left lung infiltrate. Creatinine has jumped all the way up to 5 this morning along with a mild metabolic acidosis. Sputum culture growing a gram-negative carlos with identification pending. Plateau pressure was in the mid 20s. - Review of Systems General: Denies: Fever - Patient Data Vitals - Most Recent: Last Vital Signs Temp 36.6 C 12/25/20 08:00 Pulse 83 12/25/20 08:00 Resp 23 H 12/25/20 08:00 BP 103/61 12/25/20 08:00 Pulse Ox 100 12/25/20 08:00 Weight - Most Recent: 150.139 kg I&O - Last 24 Hours: Intake & Output 12/24/20 12/25/20 12/25/20 23:59 06:59 14:59 Intake Total 50 Output Total Balance 50 Lab Results Last 24 Hours: Laboratory Results - last 24 hr 12/24/20 12/25/20 12/25/20 Range/Units 12:00 05:10 05:20 WBC 15.8 H (4.5-11.0) K/uL RBC 4.02 L (4.30-5.90) M/uL Hgb 11.7 L (12.0-15.0) g/dL Hct 37.9 L (40.0-54.0) % MCV 94 (80-98) fL MCH 29 (27-31) pg MCHC 31 L (32-36) % Plt Count 316 (150-400) K/uL Puncture Site A-line Line ABG pH 7.323 L 7.343 L (7.350-7.450) ABG pCO2 36.0 32.5 L (35.0-42.0) mmHg ABG pO2 82.9 117.0 H (75.0-100.0) mmHg ABG HCO3 18.2 L 17.2 L (22.0-26.0) mmol/L ABG Total CO2 16.7 L 15.8 L (23.0-27.0) mmol/L ABG O2 Saturation 95.8 98.0 (95.0-98.0) % ABG O2 Content 16.0 16.0 (15.0-23.0) %vol ABG Base Excess -6.7 -7.1 mm/L ABG Hemoglobin 12.1 L 11.8 L (13.5-18.0) g/dL ABG Oxyhemoglobin 93.6 95.4 % ABG Carboxyhemoglobin 1.3 1.8 H (0.0-1.6) % ABG Methemoglobin 1.0 0.9 % Fredrick Test A-line O2 Delivery Device Ventilator Ventilator Oxygen Flow Rate L Sodium (140-148) mmol/L Potassium (3.6-5.2) mmol/L Chloride (100-108) mmol/L Carbon Dioxide (21-32) mmol/L Anion Gap (5.0-14.0) mmol/L BUN (7-18) mg/dL Creatinine (0.8-1.3) mg/dL Est Cr Clr Drug Dosing mL/min Estimated GFR (MDRD) (>60) Glucose (74-106) mg/dL Calcium (8.5-10.1) mg/dL Magnesium (1.8-2.4) mg/dL Total Bilirubin (0.2-1.0) mg/dL AST (15-37) U/L ALT (12-78) U/L Alkaline Phosphatase (46-116) U/L Total Protein (6.4-8.2) g/dL Albumin (3.4-5.0) g/dL Globulin (2.3-3.5) g/dL Albumin/Globulin Ratio (1.2-2.2) 12/25/20 Range/Units 05:20 WBC (4.5-11.0) K/uL RBC (4.30-5.90) M/uL Hgb (12.0-15.0) g/dL Hct (40.0-54.0) % MCV (80-98) fL MCH (27-31) pg MCHC (32-36) % Plt Count (150-400) K/uL Puncture Site ABG pH (7.350-7.450) ABG pCO2 (35.0-42.0) mmHg ABG pO2 (75.0-100.0) mmHg ABG HCO3 (22.0-26.0) mmol/L ABG Total CO2 (23.0-27.0) mmol/L ABG O2 Saturation (95.0-98.0) % ABG O2 Content (15.0-23.0) %vol ABG Base Excess mm/L ABG Hemoglobin (13.5-18.0) g/dL ABG Oxyhemoglobin % ABG Carboxyhemoglobin (0.0-1.6) % ABG Methemoglobin % Fredrick Test O2 Delivery Device Oxygen Flow Rate L Sodium 142 (140-148) mmol/L Potassium 4.8 (3.6-5.2) mmol/L Chloride 108 (100-108) mmol/L Carbon Dioxide 18 L (21-32) mmol/L Anion Gap 20.8 H (5.0-14.0) mmol/L BUN 75 H (7-18) mg/dL Creatinine 5.0 H* D (0.8-1.3) mg/dL Est Cr Clr Drug Dosing 16.90 mL/min Estimated GFR (MDRD) 12 L (>60) Glucose 173 H (74-106) mg/dL Calcium 7.6 L (8.5-10.1) mg/dL Magnesium 2.7 H (1.8-2.4) mg/dL Total Bilirubin 0.5 (0.2-1.0) mg/dL AST 45 H (15-37) U/L ALT 44 (12-78) U/L Alkaline Phosphatase 68 (46-116) U/L Total Protein 6.5 (6.4-8.2) g/dL Albumin 1.7 L (3.4-5.0) g/dL Globulin 4.8 H (2.3-3.5) g/dL Albumin/Globulin Ratio 0.4 L (1.2-2.2) Juan Results Last 24 Hours: Microbiology 12/23/20 18:43 Gram Stain - Final Sputum - Other Respiratory Culture - Preliminary Med Orders - Current: Current Medications Acetaminophen (Acetaminophen 325 Mg Tab) 650 mg PO Q4H PRN PRN Reason: Pain (Mild 1-3)/fever Acetaminophen (Acetaminophen 650 Mg Supp) 650 mg RECTAL Q4H PRN PRN Reason: Mild pain/fever Dexamethasone (Dexamethasone 4 Mg/Ml Sdv) 6 mg IVPUSH Q24H [facility] Stop: 01/01/21 16:01 Last Admin: 12/24/20 16:02 Dose: 6 mg Documented by: Dimethicone/Zinc Oxide (Dimethicone 20%/Zinc Oxide 25% 56 Gm [place] Bottle) 0 gm TOP ASDIRECTED PRN PRN Reason: Rash Last Admin: 12/24/20 09:24 Dose: 1 applic Documented by: Fentanyl (Fentanyl 100 Mcg/2 Ml Sdv) 25 mcg IVPUSH Q2H PRN PRN Reason: Pain Propofol (Diprivan 100 Ml) 100 mls @ 3.81 mls/hr IV TITRATE [facility]; Protocol Last Admin: 12/25/20 06:57 Dose: 45 mcg/kg/min, 34.292 mls/hr Documented by: Norepinephrine Bitartrate 8 mg (/ Dextrose/Water) 250 mls @ 3.75 mls/hr IV TITRATE [facility]; Protocol Last Infusion: 12/25/20 06:41 Dose: 0 mcg/min, 0 mls/hr Documented by: Heparin Sodium (Porcine) 5,000 (units/ Sodium Chloride) 501 mls @ 1 mls/hr IV ASDIRECTED [facility] Last Admin: 12/23/20 16:43 Dose: 1 mls/hr Documented by: Sodium Chloride (Normal Saline) 1,000 mls @ 25 mls/hr IV ASDIRECTED [facility] Last Admin: 12/24/20 06:13 Dose: 25 mls/hr Documented by: Heparin Sodium (Porcine) 5,000 (units/ Sodium Chloride) 501 mls @ 1 mls/hr IV ASDIRECTED [facility] Last Admin: 12/24/20 10:03 Dose: 1 mls/hr Documented by: Lorazepam (Lorazepam 2 Mg/Ml Sdv) 0.5 mg IVPUSH Q4H PRN PRN Reason: Nausea/Vomiting Ondansetron HCl (Ondansetron 4 Mg/2 Ml Sdv) 4 mg IV Q6H PRN PRN Reason: Nausea/Vomiting Ondansetron HCl (Ondansetron 4 Mg Tab.Dis) 4 mg PO Q6H PRN PRN Reason: Nausea able to take PO Pantoprazole Sodium (Pantoprazole 40 Mg Vial) 40 mg IV Q12H [facility] Last Admin: 12/24/20 20:31 Dose: 40 mg Documented by: Sodium Chloride (Sodium Chloride 0.9% 10 Ml Syringe) 10 ml FLUSH ASDIRECTED PRN PRN Reason: Keep Vein Open Discontinued Medications Bumetanide 2.5 mg/ Bumetanide (0.5 mg) 3 mg IVPUSH ONETIME ONE Stop: 12/24/20 14:01 Last Admin: 12/24/20 14:12 Dose: 3 mg Documented by: Bumetanide (Bumetanide 2.5 Mg/10 Ml Mdv) 4 mg IVPUSH ONETIME ONE Stop: 12/24/20 18:01 Last Admin: 12/24/20 17:55 Dose: 4 mg Documented by: Dexamethasone (Dexamethasone 4 Mg/Ml Sdv) 6 mg IVPUSH DAILY [facility] Stop: 01/01/21 09:01 Last Admin: 12/23/20 16:32 Dose: 6 mg Documented by: Enoxaparin Sodium (Enoxaparin 40 Mg/0.4 Ml Syringe) 40 mg SUBCUT Q24H [facility] Last Admin: 12/24/20 20:36 Dose: 40 mg Documented by: Furosemide (Furosemide 40 Mg/4 Ml Vial) 40 mg IVPUSH NOW ONE Stop: 12/24/20 11:01 Last Admin: 12/24/20 11:22 Dose: 40 mg Documented by: Heparin Sodium (Porcine) (Heparin Sodium 5,000 Units/Ml Vial) Confirm Administered Dose 5,000 units .ROUTE .STK-MED ONE Stop: 12/23/20 14:51 Last Admin: 12/23/20 16:26 Dose: Not Given Documented by: Propofol (Diprivan 100 Ml) Confirm Administered Dose 100 mls @ as directed .ROUTE .STK-MED ONE Stop: 12/23/20 14:35 Last Admin: 12/23/20 14:39 Dose: Not Given Documented by: Sodium Chloride (Normal Saline) 100 mls @ 3 mls/sec IV ONETIME ONE Stop: 12/23/20 14:49 Last Admin: 12/23/20 16:26 Dose: Not Given Documented by: Remdesivir 200 mg/ Sodium (Chloride) 250 mls @ 250 mls/hr IV ONETIME ONE Stop: 12/23/20 14:57 Last Admin: 12/23/20 16:42 Dose: Not Given Documented by: Ceftazidime 1 gm/ Sodium (Chloride) 50 mls @ 100 mls/hr IV Q8H [facility] Stop: 12/24/20 09:30 Last Admin: 12/24/20 07:55 Dose: 100 mls/hr Documented by: Norepinephrine Bitartrate 8 mg (/ Dextrose/Water) 258 mls @ 3.87 mls/hr IV TITRATE [facility]; Protocol Vancomycin HCl 2 gm/ Sodium (Chloride) 500 mls @ 250 mls/hr IV Q12H [facility] Last Admin: 12/24/20 04:56 Dose: 250 mls/hr Documented by: Levofloxacin/Dextrose 750 mg/ (Premix) 150 mls @ 100 mls/hr IV Q24H [facility] Last Admin: 12/23/20 19:48 Dose: 100 mls/hr Documented by: Sodium Chloride (Normal Saline) 500 mls @ 500 mls/hr IV ASDIRECTED [facility] Stop: 12/24/20 00:46 Last Admin: 12/24/20 00:00 Dose: 500 mls/hr Documented by: Vasopressin 100 units/ (Dextrose/Water) 255 mls @ 1.53 mls/hr IV TITRATE [facility]; Protocol Stop: 12/24/20 17:45 Last Titration: 12/24/20 16:29 Dose: 0 units/min, 0 mls/hr Documented by: Ceftazidime 1 gm/ Sodium (Chloride) 50 mls @ 100 mls/hr IV Q12H [facility] Last Admin: 12/25/20 07:23 Dose: 100 mls/hr Documented by: Levofloxacin/Dextrose 750 mg/ (Premix) 150 mls @ 100 mls/hr IV Q48H [facility] Vancomycin HCl 2 gm/ Sodium (Chloride) 500 mls @ 250 mls/hr IV Q24H [facility] Last Admin: 12/25/20 05:14 Dose: 250 mls/hr Documented by: Vasopressin 40 units/ Dextrose (/Water) 102 mls @ 1.53 mls/hr IV TITRATE [facility]; Protocol Sodium Chloride (Normal Saline) 500 mls @ 500 mls/hr IV ASDIRECTED [facility] Stop: 12/24/20 17:31 Last Admin: 12/24/20 16:47 Dose: 500 mls/hr Documented by: Iopamidol (Iopamidol 755 Mg/Ml 100 Ml Bottle) 100 ml IV . DIRECTED [facility] Lorazepam (Lorazepam 2 Mg/Ml Sdv) Confirm Administered Dose 2 mg .ROUTE .STK-MED ONE Stop: 12/23/20 15:22 Last Admin: 12/23/20 15:49 Dose: Not Given Documented by: Lorazepam (Lorazepam 2 Mg/Ml Sdv) 2 mg IVPUSH ONETIME ONE Stop: 12/23/20 15:27 Last Admin: 12/23/20 15:28 Dose: 2 mg Documented by: Propofol (Propofol 200 Mg/20 Ml Sdv) Confirm Administered Dose 200 mg .ROUTE .STK-MED ONE Stop: 12/23/20 15:03 Rocuronium [place] (Rocuronium 50 Mg/5 Ml Vial) Confirm Administered Dose 50 mg .ROUTE .STK-MED ONE Stop: 12/23/20 15:03 Sodium Chloride (Sodium Chloride 0.9% 10 Ml Syringe) 10 ml FLUSH ONETIME PRN PRN Reason: PER RADIOLOGY PROTOCOL Succinylcholine Chloride (Succinylcholine 200 Mg/10 Ml Mdv) Confirm Administered Dose 0 mg .ROUTE .STK-MED ONE Stop: 12/23/20 15:03 - Exam Quality Assessment: Supplemental Oxygen, Central Line/PICC, Urine Catheter, DVT Prophylaxis, Restraints Urinary Catheter Total Time: 1Days 14Hours General: No Acute Distress, Sedated. No: Alert Neck: Supple Lungs: Normal Respiratory Effort, Decreased Breath Sounds (left lung base), Crackles (right lower lung ), Rhonchi (few left mid lung ) Cardiovascular: Regular Rate, Regular Rhythm GI/Abdominal Exam: Soft, No Distention, Other (huge supraumbilical hernia ) Extremities: No Pedal Edema. No: Increased Warmth Skin: Warm, Dry, Other (chronic venous stasis ) Psy/Mental Status: No: Alert, Agitated - Patient Data Lab Results Last 24 hrs: Laboratory Results - last 24 hr 12/24/20 12/25/20 12/25/20 Range/Units 12:00 05:10 05:20 WBC 15.8 H (4.5-11.0) K/uL RBC 4.02 L (4.30-5.90) M/uL Hgb 11.7 L (12.0-15.0) g/dL Hct 37.9 L (40.0-54.0) % MCV 94 (80-98) fL MCH 29 (27-31) pg MCHC 31 L (32-36) % Plt Count 316 (150-400) K/uL Puncture Site A-line Line ABG pH 7.323 L 7.343 L (7.350-7.450) ABG pCO2 36.0 32.5 L (35.0-42.0) mmHg ABG pO2 82.9 117.0 H (75.0-100.0) mmHg ABG HCO3 18.2 L 17.2 L (22.0-26.0) mmol/L ABG Total CO2 16.7 L 15.8 L (23.0-27.0) mmol/L ABG O2 Saturation 95.8 98.0 (95.0-98.0) % ABG O2 Content 16.0 16.0 (15.0-23.0) %vol ABG Base Excess -6.7 -7.1 mm/L ABG Hemoglobin 12.1 L 11.8 L (13.5-18.0) g/dL ABG Oxyhemoglobin 93.6 95.4 % ABG Carboxyhemoglobin 1.3 1.8 H (0.0-1.6) % ABG Methemoglobin 1.0 0.9 % Fredrick Test A-line O2 Delivery Device Ventilator Ventilator Oxygen Flow Rate L Sodium (140-148) mmol/L Potassium (3.6-5.2) mmol/L Chloride (100-108) mmol/L Carbon Dioxide (21-32) mmol/L Anion Gap (5.0-14.0) mmol/L BUN (7-18) mg/dL Creatinine (0.8-1.3) mg/dL Est Cr Clr Drug Dosing mL/min Estimated GFR (MDRD) (>60) Glucose (74-106) mg/dL Calcium (8.5-10.1) mg/dL Magnesium (1.8-2.4) mg/dL Total Bilirubin (0.2-1.0) mg/dL AST (15-37) U/L ALT (12-78) U/L Alkaline Phosphatase (46-116) U/L Total Protein (6.4-8.2) g/dL Albumin (3.4-5.0) g/dL Globulin (2.3-3.5) g/dL Albumin/Globulin Ratio (1.2-2.2) 11/07/21 Range/Units 05:20 WBC (4.5-11.0) K/uL RBC (4.30-5.90) M/uL Hgb (12.0-15.0) g/dL Hct (40.0-54.0) % MCV (80-98) fL MCH (27-31) pg MCHC (32-36) % Plt Count (150-400) K/uL Puncture Site ABG pH (7.350-7.450) ABG pCO2 (35.0-42.0) mmHg ABG pO2 (75.0-100.0) mmHg ABG HCO3 (22.0-26.0) mmol/L ABG Total CO2 (23.0-27.0) mmol/L ABG O2 Saturation (95.0-98.0) % ABG O2 Content (15.0-23.0) %vol ABG Base Excess mm/L ABG Hemoglobin (13.5-18.0) g/dL ABG Oxyhemoglobin % ABG Carboxyhemoglobin (0.0-1.6) % ABG Methemoglobin % Fredrick Test O2 Delivery Device Oxygen Flow Rate L Sodium 142 (140-148) mmol/L Potassium 4.8 (3.6-5.2) mmol/L Chloride 108 (100-108) mmol/L Carbon Dioxide 18 L (21-32) mmol/L Anion Gap 20.8 H (5.0-14.0) mmol/L BUN 75 H (7-18) mg/dL Creatinine 5.0 H* D (0.8-1.3) mg/dL Est Cr Clr Drug Dosing 16.90 mL/min Estimated GFR (MDRD) 12 L (>60) Glucose 173 H (74-106) mg/dL Calcium 7.6 L (8.5-10.1) mg/dL Magnesium 2.7 H (1.8-2.4) mg/dL Total Bilirubin 0.5 (0.2-1.0) mg/dL AST 45 H (15-37) U/L ALT 44 (12-78) U/L Alkaline Phosphatase 68 (46-116) U/L Total Protein 6.5 (6.4-8.2) g/dL Albumin 1.7 L (3.4-5.0) g/dL Globulin 4.8 H (2.3-3.5) g/dL Albumin/Globulin Ratio 0.4 L (1.2-2.2) Result Diagrams: 12/25/20 05:10 12/25/20 05:20 Juan Results Last 24 hrs: Microbiology 12/23/20 18:43 Gram Stain - Final Sputum - Other Respiratory Culture - Preliminary Sepsis Event Note - Evaluation Sepsis Screening Result: Possible Sepsis Risk - Focused Exam Vital Signs: Vital Signs Temp Pulse Pulse Resp BP BP Pulse Ox 12/25/20 08:00 36.6 C 83 23 H 103/61 100 12/25/20 07:00 36.8 C 91 17 120/67 94 L 12/25/20 06:00 88 19 127/75 94 L 12/25/20 05:00 36.8 C 83 19 123/64 94 L 12/25/20 04:00 94 18 123/66 94 L 12/25/20 03:00 89 18 127/67 95 12/25/20 02:00 83 19 113/63 95 12/25/20 01:27 WARRANTY COORDINATOR 36.8 C 91 20 134/81 94 L 12/25/20 01:12 CDT 94 L 12/25/20 00:00 36.8 C 89 102 H 19 122/68 122/68 94 L 12/24/20 23:17 86 19 133/72 96 - Problem List & Annotations (1) Bilateral pneumonia SNOMED Code(s): 697127243 Code(s): J18.9 - PNEUMONIA, UNSPECIFIED ORGANISM Status: Acute Current Visit: Yes Qualifiers: Pneumonia type: due to unspecified organism Lung location: unspecified part of lung Qualified Code(s): J18.9 - Pneumonia, unspecified organism (2) Septic shock SNOMED Code(s): 73191594 Code(s): A41.9 - SEPSIS, UNSPECIFIED ORGANISM; R65.21 - SEVERE SEPSIS WITH SEPTIC SHOCK Status: Acute Current Visit: Yes (3) Acute respiratory failure with hypoxia SNOMED Code(s): 22703001, 518496639 Code(s): J96.01 - ACUTE RESPIRATORY FAILURE WITH HYPOXIA Status: Acute Current Visit: Yes (4) Pneumonia due to COVID-19 virus SNOMED Code(s): 897090729882173384 Code(s): U07.1 - COVID-19; J12.82 - PNEUMONIA DUE TO CORONAVIRUS DISEASE 2019 Status: Acute Current Visit: Yes (5) Atrial fibrillation SNOMED Code(s): 38637170 Code(s): I48.91 - UNSPECIFIED ATRIAL FIBRILLATION Status: Chronic Current Visit: Yes Qualifiers: Atrial fibrillation type: unspecified Qualified Code(s): I48.91 - Unspecified atrial fibrillation (6) Chronic obstructive pulmonary disease (COPD) SNOMED Code(s): 62596366 Code(s): J44.9 - CHRONIC OBSTRUCTIVE PULMONARY DISEASE, UNSPECIFIED Status: Chronic Current Visit: No Qualifiers: COPD type: unspecified COPD Qualified Code(s): J44.9 - Chronic obstructive pulmonary disease, unspecified (7) Acute kidney injury SNOMED Code(s): 07281304, 86455915 Code(s): N17.9 - ACUTE KIDNEY FAILURE, UNSPECIFIED Status: Acute Current Visit: Yes - Problem List Review Problem List Initiated/Reviewed/Updated: Yes - My Orders Last 24 Hours: My Active Orders 12/24/20 13:43 Bladder Scan [RC] ASDIRECTED 12/25/20 05:11 CXR [Chest 1V Frontal] [CR] AM 12/25/20 09:15 Albumin Human [Albumin 25%] 25 gm Premix Bag 1 bag IV Q8H 12/25/20 09:18 Initiate/Renew Non-Violent Restraints (All Ages) Q24H 12/25/20 10:00 Nystatin [Mycostatin] 5 ml PO QID 12/25/20 20:00 Levofloxacin/Dextrose 5%-Water [Levaquin in D5W 500 MG/100 ML] 500 mg Premix Bag 1 bag IV Q48H 12/25/20 21:00 Enoxaparin [Lovenox] 30 mg SUBCUT Q24H 12/26/20 05:00 BLOOD GAS ARTERIAL [BG] Timed CBC W/O DIFF,HEMOGRAM [HEME] Timed (1) COMPREHENSIVE METABOLIC PN,CMP [CHEM] Timed CRP [C-REACTIVE PROTEIN] [CHEM] Timed D-DIMER QUANTITATIVE [COAG] Timed 12/26/20 07:00 cefTAZidime Pentahydrate [Fortaz] 1 gm Sodium Chloride 0.9% [Normal Saline AdvBag] 50 ml IV Q24H - Plan Plan:: ASSESSMENT AND PLAN - Bilateral pneumonia-complicated by acute respiratory failure with hypoxia and septic shock. Vasopressors have been weaned down. Respiratory culture growing gram-negative rods with identification pending. Ventilator support has diminished significantly and he is down to 35% FiO2. Working on weaning the PEEP down. -Broad-spectrum antibiotic coverage with levofloxacin, meropenem -Discontinue vancomycin -Mechanical ventilation, consider weaning trial starting tomorrow morning -Propofol for sedation and lorazepam and or fentanyl for breakthrough agitation -Follow-up sputum culture -Repeat blood gases following ventilator changes and in the morning -Continue steroids COVID-19 positive-unclear timing of symptoms. I suspect Covid was more remote and he had a bacterial pneumonia on the tail end leading to his acute illness currently. -Continue dexamethasone (day 3) -Covid precautions -Additional management as above Acute kidney injury-significant jump in creatinine from 1.5 ->2.9 ->5. Urine output did tow picker yesterday afternoon but seems to be tailing off again today. CVP is 10-11. -Closely monitor urine output -Echocardiogram in the morning to assess left ventricular function History of COPD-patient currently intubated and sedated. -Management as above History of atrial fibrillation-not chronically anticoagulated. Heart rate normal. -Rate control as needed -Cardiac monitoring Maintenance issues - -DVT prophylaxis-enoxaparin -GI prophylaxis-PPI -Nutrition-nothing by mouth -[place] catheter-inserted for strict intake and output monitoring in a critical p atient Disposition -I anticipate discharge to subacute rehab versus home after the hospital stay Primary care physician -MD Jaime Castañeda M.D.
[2020-12-25] MEDS: Pantoprazole 40 MG Vial IV SCH ×2 (09:57→20:09)
[2020-12-25] MEDS: Nystatin Susp 100,000 Unit/ML 5 ML UD Cup PO SCH ×3 (09:57→22:26)
[2020-12-25] MEDS: Albumin Human 25 GM in Premix Bag 1 BAG IV SCH ×2 (09:57→18:20)
[2020-12-25] MEDS: Dimethicone 20%/Zinc Oxide 25% 56 GM Spray Bottle TOP PRN (09:58)
[2020-12-25] MEDS: Dexamethasone 4 MG/ML SDV IVPUSH SCH (15:27)
[2020-12-25] MEDS ORDERED: Levofloxacin/Dextrose 5%-Water 500 MG in Premix Bag 1 BAG IV SCH (20:00)
[2020-12-25] MEDS ORDERED: Levofloxacin/Dextrose 5%-Water 750 MG in Premix Bag 1 BAG IV SCH (20:00)
[2020-12-25] MEDS: Sodium Chloride 0.9% 1,000 ML IV SCH (20:08)
[2020-12-25] MEDS: Enoxaparin 30 MG/0.3 ML Syringe SUBCUT SCH (20:09)
[2020-12-26] MEDS: propofoL 100 ML IV SCH ×7 (02:25→22:45)
[2020-12-26] MEDS: Albumin Human 25 GM in Premix Bag 1 BAG IV SCH ×3 (03:00→17:13)
[2020-12-26] MEDS: Nystatin Susp 100,000 Unit/ML 5 ML UD Cup PO SCH ×5 (04:59→21:06)
[2020-12-26] MEDS ORDERED: Sodium Polystyrene Sulfonate 15 GM/60 ML Susp 60 ML Bot RECTAL ONE (09:00)
--- NOTE | 2020-12-26 09:32 | CR ---
CHEST: Portable 12/23/2020 at 5:07 PM CLINICAL HISTORY:Central line placement COMPARISON:Earlier same day FINDINGS: Endotracheal tube is in the mid trachea. There is a right jugular catheter. The tip is in the superior vena cava. There is improved aeration in the left lung when compared to prior study bilateral infiltrates persist. There is no pneumothorax Impression: Endotracheal tube and right central line are in good position Improved aeration of the left lung when compared to prior study Bilateral infiltrates persist
[2020-12-26] MEDS: Pantoprazole 40 MG Vial IV SCH ×2 (10:52→20:55)
--- NOTE | 2020-12-26 11:02 | CR ---
CHEST: Portable 12/25/2020 at 4:11 AM CLINICAL HISTORY:Follow-up infiltrates COMPARISON:12/23/2020 FINDINGS: Endotracheal tube is in the mid trachea. There is a central venous line in the superior vena cava. . The there is been slight improvement in bilateral infiltrates particularly on the left. There are underlying chronic lung changes Impression: Endotracheal tube and right jugular catheter in good position Improved aeration in both lungs when compared to prior study
--- NOTE | 2020-12-26 13:41 | PCM.PN ---
- General Info Date of Service: 12/26/20 Subjective Update: Mr. Steel has continued to show improvement from a respiratory standpoint. He did undergo a spontaneous breathing trial this morning but failed because of decrease in saturations. He is sedated and unable to provide meaningful information concerning review of systems or current symptoms. Renal function has shown further deterioration with creatinine now up to 6.2. Potassium level is also noted to be mildly elevated. - Patient Data Vitals - Most Recent: Last Vital Signs Temp 98 F 12/26/20 09:00 Pulse 76 12/26/20 13:00 Resp 19 12/26/20 13:00 BP 143/68 H 12/26/20 13:00 Pulse Ox 93 L 12/26/20 13:00 Weight - Most Recent: 336 lb 11.2 oz I&O - Last 24 Hours: Intake & Output 12/25/20 12/26/20 12/26/20 22:59 06:59 14:59 Intake Total 1102 1106 Output Total 100 250 Balance 1002 856 Lab Results Last 24 Hours: Laboratory Results - last 24 hr 12/26/20 12/26/20 12/26/20 Range/Units 04:25 04:25 04:25 WBC 11.1 H (4.5-11.0) K/uL RBC 3.71 L (4.30-5.90) M/uL Hgb 10.7 L (12.0-15.0) g/dL Hct 35.1 L (40.0-54.0) % MCV 95 (80-98) fL MCH 29 (27-31) pg MCHC 31 L (32-36) % Plt Count 322 (150-400) K/uL D-Dimer, Quantitative 2502.97 H (0.0-500.0) ng/mL Puncture Site Line ABG pH 7.304 L (7.350-7.450) ABG pCO2 31.3 L (35.0-42.0) mmHg ABG pO2 86.2 (75.0-100.0) mmHg ABG HCO3 15.1 L (22.0-26.0) mmol/L ABG Total CO2 14.2 L (23.0-27.0) mmol/L ABG O2 Saturation 95.7 (95.0-98.0) % ABG O2 Content 14.3 L (15.0-23.0) %vol ABG Base Excess -9.8 mm/L ABG Hemoglobin 10.9 L (13.5-18.0) g/dL ABG Oxyhemoglobin 92.7 % ABG Carboxyhemoglobin 1.7 H (0.0-1.6) % ABG Methemoglobin 1.4 % O2 Delivery Device Ventilator Oxygen Flow Rate L Sodium (140-148) mmol/L Potassium (3.6-5.2) mmol/L Chloride (100-108) mmol/L Carbon Dioxide (21-32) mmol/L Anion Gap (5.0-14.0) mmol/L BUN (7-18) mg/dL Creatinine (0.8-1.3) mg/dL Est Cr Clr Drug Dosing mL/min Estimated GFR (MDRD) (>60) Glucose (74-106) mg/dL Calcium (8.5-10.1) mg/dL Total Bilirubin (0.2-1.0) mg/dL AST (15-37) U/L ALT (12-78) U/L Alkaline Phosphatase (46-116) U/L C-Reactive Protein (0.0-0.3) mg/dL Total Protein (6.4-8.2) g/dL Albumin (3.4-5.0) g/dL Globulin (2.3-3.5) g/dL Albumin/Globulin Ratio (1.2-2.2) 12/26/20 Range/Units 04:25 WBC (4.5-11.0) K/uL RBC (4.30-5.90) M/uL Hgb (12.0-15.0) g/dL Hct (40.0-54.0) % MCV (80-98) fL MCH (27-31) pg MCHC (32-36) % Plt Count (150-400) K/uL D-Dimer, Quantitative (0.0-500.0) ng/mL Puncture Site ABG pH (7.350-7.450) ABG pCO2 (35.0-42.0) mmHg ABG pO2 (75.0-100.0) mmHg ABG HCO3 (22.0-26.0) mmol/L ABG Total CO2 (23.0-27.0) mmol/L ABG O2 Saturation (95.0-98.0) % ABG O2 Content (15.0-23.0) %vol ABG Base Excess mm/L ABG Hemoglobin (13.5-18.0) g/dL ABG Oxyhemoglobin % ABG Carboxyhemoglobin (0.0-1.6) % ABG Methemoglobin % O2 Delivery Device Oxygen Flow Rate L Sodium 143 (140-148) mmol/L Potassium 5.5 H (3.6-5.2) mmol/L Chloride 109 H (100-108) mmol/L Carbon Dioxide 16 L (21-32) mmol/L Anion Gap 23.5 H (5.0-14.0) mmol/L BUN 100 H* (7-18) mg/dL Creatinine 6.2 H* (0.8-1.3) mg/dL Est Cr Clr Drug Dosing 13.63 mL/min Estimated GFR (MDRD) 9 L (>60) Glucose 141 H (74-106) mg/dL Calcium 7.5 L (8.5-10.1) mg/dL Total Bilirubin 0.6 (0.2-1.0) mg/dL AST 32 (15-37) U/L ALT 31 (12-78) U/L Alkaline Phosphatase 51 (46-116) U/L C-Reactive Protein 10.30 H (0.0-0.3) mg/dL Total Protein 6.4 (6.4-8.2) g/dL Albumin 2.4 L (3.4-5.0) g/dL Globulin 4.0 H (2.3-3.5) g/dL Albumin/Globulin Ratio 0.6 L (1.2-2.2) Juan Results Last 24 Hours: Microbiology 12/23/20 18:43 Gram Stain - Final Sputum - Other Respiratory Culture - Preliminary Pseudomonas Aeruginosa Med Orders - Current: Current Medications Acetaminophen (Acetaminophen 325 Mg Tab) 650 mg PO Q4H PRN PRN Reason: Pain (Mild 1-3)/fever Acetaminophen (Acetaminophen 650 Mg Supp) 650 mg RECTAL Q4H PRN PRN Reason: Mild pain/fever Dexamethasone (Dexamethasone 4 Mg/Ml Sdv) 6 mg IVPUSH Q24H [facility] Stop: 01/01/21 16:01 Last Admin: 12/25/20 15:27 Dose: 6 mg Documented by: Dimethicone/Zinc Oxide (Dimethicone 20%/Zinc Oxide 25% 56 Gm [place] Bottle) 0 gm TOP ASDIRECTED PRN PRN Reason: Rash Last Admin: 12/25/20 09:58 Dose: 1 applic Documented by: Enoxaparin Sodium (Enoxaparin 30 Mg/0.3 Ml Syringe) 30 mg SUBCUT Q24H [facility] Last Admin: 12/25/20 20:09 Dose: 30 mg Documented by: Fentanyl (Fentanyl 100 Mcg/2 Ml Sdv) 25 mcg IVPUSH Q2H PRN PRN Reason: Pain Propofol (Diprivan 100 Ml) 100 mls @ 3.81 mls/hr IV TITRATE [facility]; Protocol Last Admin: 12/26/20 08:25 Dose: 45 mcg/kg/min, 34.292 mls/hr Documented by: Norepinephrine Bitartrate 8 mg (/ Dextrose/Water) 250 mls @ 3.75 mls/hr IV TITRATE [facility]; Protocol Last Infusion: 12/25/20 06:41 Dose: 0 mcg/min, 0 mls/hr Documented by: Heparin Sodium (Porcine) 5,000 (units/ Sodium Chloride) 501 mls @ 1 mls/hr IV ASDIRECTED [facility] Last Admin: 12/23/20 16:43 Dose: 1 mls/hr Documented by: Sodium Chloride (Normal Saline) 1,000 mls @ 25 mls/hr IV ASDIRECTED [facility] [place] Last Admin: 12/25/20 20:08 Dose: 25 mls/hr Documented by: Heparin Sodium (Porcine) 5,000 (units/ Sodium Chloride) 501 mls @ 1 mls/hr IV ASDIRECTED [facility] Last Admin: 12/24/20 10:03 Dose: 1 mls/hr Documented by: Albumin Human 25 gm/ Premix 100 mls @ 25 mls/hr IV Q8H [facility] [place] Stop: 12/28/20 10:01 Last Admin: 12/26/20 10:58 Dose: 25 mls/hr Documented by: Ceftazidime 1 gm/ Sodium (Chloride) 50 mls @ 100 mls/hr IV Q24H [facility] [place] Last Admin: 12/26/20 09:28 Dose: 100 mls/hr Documented by: Levofloxacin/Dextrose 500 mg/ (Premix) 100 mls @ 100 mls/hr IV Q48H [facility] [place] Last Admin: 12/25/20 20:09 Dose: 100 mls/hr Documented by: Lorazepam (Lorazepam 2 Mg/Ml Sdv) 0.5 mg IVPUSH Q4H PRN PRN Reason: Nausea/Vomiting Nystatin (Nystatin Susp 100,000 Unit/Ml 5 Ml Ud Cup) 5 ml PO QID [facility] [place] Last Admin: 12/26/20 10:56 Dose: Not Given Documented by: Ondansetron HCl (Ondansetron 4 Mg/2 Ml Sdv) 4 mg IV Q6H PRN PRN Reason: Nausea/Vomiting Ondansetron HCl (Ondansetron 4 Mg Tab.Dis) 4 mg PO Q6H PRN PRN Reason: Nausea able to take PO Pantoprazole Sodium (Pantoprazole 40 Mg Vial) 40 mg IV Q12H [facility] [place] Last Admin: 12/26/20 10:52 Dose: 40 mg Documented by: Sodium Chloride (Sodium Chloride 0.9% 10 Ml Syringe) 10 ml FLUSH ASDIRECTED PRN PRN Reason: Keep Vein Open Discontinued Medications Bumetanide 2.5 mg/ Bumetanide (0.5 mg) 3 mg IVPUSH ONETIME ONE Stop: 12/24/20 14:01 Last Admin: 12/24/20 14:12 Dose: 3 mg Documented by: Bumetanide (Bumetanide 2.5 Mg/10 Ml Mdv) 4 mg IVPUSH ONETIME ONE Stop: 12/24/20 18:01 Last Admin: 12/24/20 17:55 Dose: 4 mg Documented by: Dexamethasone (Dexamethasone 4 Mg/Ml Sdv) 6 mg IVPUSH DAILY [facility] Stop: 01/01/21 09:01 Last Admin: 12/23/20 16:32 Dose: 6 mg Documented by: Enoxaparin Sodium (Enoxaparin 40 Mg/0.4 Ml Syringe) 40 mg SUBCUT Q24H [facility] [place] Last Admin: 12/24/20 20:36 Dose: 40 mg Documented by: Furosemide (Furosemide 40 Mg/4 Ml Vial) 40 mg IVPUSH NOW ONE Stop: 12/24/20 11:01 Last Admin: 12/24/20 11:22 Dose: 40 mg Documented by: Heparin Sodium (Porcine) (Heparin Sodium 5,000 Units/Ml Vial) Confirm Administered Dose 5,000 units .ROUTE .STK-MED ONE Stop: 12/23/20 14:51 Last Admin: 12/23/20 16:26 Dose: Not Given Documented by: Propofol (Diprivan 100 Ml) Confirm Administered Dose 100 mls @ as directed .ROUTE .STK-MED ONE Stop: 12/23/20 14:35 Last Admin: 12/23/20 14:39 Dose: Not Given Documented by: Sodium Chloride (Normal Saline) 100 mls @ 3 mls/sec IV ONETIME ONE Stop: 12/23/20 14:49 Last Admin: 12/23/20 16:26 Dose: Not Given Documented by: Remdesivir 200 mg/ Sodium (Chloride) 250 mls @ 250 mls/hr IV ONETIME ONE Stop: 12/23/20 14:57 Last Admin: 12/23/20 16:42 Dose: Not Given Documented by: Ceftazidime 1 gm/ Sodium (Chloride) 50 mls @ 100 mls/hr IV Q8H [facility] Stop: 12/24/20 09:30 Last Admin: 12/24/20 07:55 Dose: 100 mls/hr Documented by: Norepinephrine Bitartrate 8 mg (/ Dextrose/Water) 258 mls @ 3.87 mls/hr IV TITRATE [facility]; Protocol Vancomycin HCl 2 gm/ Sodium (Chloride) 500 mls @ 250 mls/hr IV Q12H [facility] [place] Last Admin: 12/24/20 04:56 Dose: 250 mls/hr Documented by: Levofloxacin/Dextrose 750 mg/ (Premix) 150 mls @ 100 mls/hr IV Q24H [facility] [place] Last Admin: 12/23/20 19:48 Dose: 100 mls/hr Documented by: Sodium Chloride (Normal Saline) 500 mls @ 500 mls/hr IV ASDIRECTED [facility] [place] Stop: 12/24/20 00:46 Last Admin: 12/24/20 00:00 Dose: 500 mls/hr Documented by: Vasopressin 100 units/ (Dextrose/Water) 255 mls @ 1.53 mls/hr IV TITRATE [facility] [place]; Protocol Stop: 12/24/20 17:45 Last Titration: 12/24/20 16:29 Dose: 0 units/min, 0 mls/hr Documented by: Ceftazidime 1 gm/ Sodium (Chloride) 50 mls @ 100 mls/hr IV Q12H [facility] [place] Last Admin: 12/25/20 07:23 Dose: 100 mls/hr Documented by: Levofloxacin/Dextrose 750 mg/ (Premix) 150 mls @ 100 mls/hr IV Q48H [facility] [place] Vancomycin HCl 2 gm/ Sodium (Chloride) 500 mls @ 250 mls/hr IV Q24H [facility] [place] Last Admin: 12/25/20 05:14 Dose: 250 mls/hr Documented by: Vasopressin 40 units/ Dextrose (/Water) 102 mls @ 1.53 mls/hr IV TITRATE [facility]; Protocol Sodium Chloride (Normal Saline) 500 mls @ 500 mls/hr IV ASDIRECTED [facility] [place] Stop: 12/24/20 17:31 Last Admin: 12/24/20 16:47 Dose: 500 mls/hr Documented by: Iopamidol (Iopamidol 755 Mg/Ml 100 Ml Bottle) 100 ml IV . DIRECTED [facility] Lorazepam (Lorazepam 2 Mg/Ml Sdv) Confirm Administered Dose 2 mg .ROUTE .STK-MED ONE Stop: 12/23/20 15:22 Last Admin: 12/23/20 15:49 Dose: Not Given Documented by: Lorazepam (Lorazepam 2 Mg/Ml Sdv) 2 mg IVPUSH ONETIME ONE Stop: 12/23/20 15:27 Last Admin: 12/23/20 15:28 Dose: 2 mg Documented by: Propofol (Propofol 200 Mg/20 Ml Sdv) Confirm Administered Dose 200 mg .ROUTE .STK-MED ONE Stop: 12/23/20 15:03 Rocuronium [place] (Rocuronium 50 Mg/5 Ml Vial) Confirm Administered Dose 50 mg .ROUTE .STK-MED ONE Stop: 12/23/20 15:03 Sodium Chloride (Sodium Chloride 0.9% 10 Ml Syringe) 10 ml FLUSH ONETIME PRN PRN Reason: PER RADIOLOGY PROTOCOL Sodium Polystyrene Sulfonate (Sodium Polystyrene Sulfonate 15 Gm/60 Ml Susp 60 Ml Bot) 30 gm RECTAL NOW ONE Stop: 12/26/20 09:01 Succinylcholine Chloride (Succinylcholine 200 Mg/10 Ml Mdv) Confirm Administered Dose 0 mg .ROUTE .STK-MED ONE Stop: 12/23/20 15:03 - Exam Quality Assessment: Supplemental Oxygen (Ventilator), Urine Catheter, DVT Prophylaxis Urinary Catheter Total Time: 2Days 5Hours General: Sedated, Lethargic Lungs: Normal Respiratory Effort, Rales, Rhonchi. No: Wheezing Cardiovascular: Regular Rate, Regular Rhythm, No Murmurs GI/Abdominal Exam: Soft, Non-Tender, No Organomegaly, No Distention, Other (Large midline hernia) Extremities: Non-Tender, No Pedal Edema - Patient Data Lab Results Last 24 hrs: Laboratory Results - last 24 hr 12/26/20 12/26/20 12/26/20 Range/Units 04:25 04:25 04:25 WBC 11.1 H (4.5-11.0) K/uL RBC 3.71 L (4.30-5.90) M/uL Hgb 10.7 L (12.0-15.0) g/dL Hct 35.1 L (40.0-54.0) % MCV 95 (80-98) fL MCH 29 (27-31) pg MCHC 31 L (32-36) % Plt Count 322 (150-400) K/uL D-Dimer, Quantitative 2502.97 H (0.0-500.0) ng/mL Puncture Site Line ABG pH 7.304 L (7.350-7.450) ABG pCO2 31.3 L (35.0-42.0) mmHg ABG pO2 86.2 (75.0-100.0) mmHg ABG HCO3 15.1 L (22.0-26.0) mmol/L ABG Total CO2 14.2 L (23.0-27.0) mmol/L ABG O2 Saturation 95.7 (95.0-98.0) % ABG O2 Content 14.3 L (15.0-23.0) %vol ABG Base Excess -9.8 mm/L ABG Hemoglobin 10.9 L (13.5-18.0) g/dL ABG Oxyhemoglobin 92.7 % ABG Carboxyhemoglobin 1.7 H (0.0-1.6) % ABG Methemoglobin 1.4 % O2 Delivery Device Ventilator Oxygen Flow Rate L Sodium (140-148) mmol/L Potassium (3.6-5.2) mmol/L Chloride (100-108) mmol/L Carbon Dioxide (21-32) mmol/L Anion Gap (5.0-14.0) mmol/L BUN (7-18) mg/dL Creatinine (0.8-1.3) mg/dL Est Cr Clr Drug Dosing mL/min Estimated GFR (MDRD) (>60) Glucose (74-106) mg/dL Calcium (8.5-10.1) mg/dL Total Bilirubin (0.2-1.0) mg/dL AST (15-37) U/L ALT (12-78) U/L Alkaline Phosphatase (46-116) U/L C-Reactive Protein (0.0-0.3) mg/dL Total Protein (6.4-8.2) g/dL Albumin (3.4-5.0) g/dL Globulin (2.3-3.5) g/dL Albumin/Globulin Ratio (1.2-2.2) 12/26/20 Range/Units 04:25 WBC (4.5-11.0) K/uL RBC (4.30-5.90) M/uL Hgb (12.0-15.0) g/dL Hct (40.0-54.0) % MCV (80-98) fL MCH (27-31) pg MCHC (32-36) % Plt Count (150-400) K/uL D-Dimer, Quantitative (0.0-500.0) ng/mL Puncture Site ABG pH (7.350-7.450) ABG pCO2 (35.0-42.0) mmHg ABG pO2 (75.0-100.0) mmHg ABG HCO3 (22.0-26.0) mmol/L ABG Total CO2 (23.0-27.0) mmol/L ABG O2 Saturation (95.0-98.0) % ABG O2 Content (15.0-23.0) %vol ABG Base Excess mm/L ABG Hemoglobin (13.5-18.0) g/dL ABG Oxyhemoglobin % ABG Carboxyhemoglobin (0.0-1.6) % ABG Methemoglobin % O2 Delivery Device Oxygen Flow Rate L Sodium 143 (140-148) mmol/L Potassium 5.5 H (3.6-5.2) mmol/L Chloride 109 H (100-108) mmol/L Carbon Dioxide 16 L (21-32) mmol/L Anion Gap 23.5 H (5.0-14.0) mmol/L BUN 100 H* (7-18) mg/dL Creatinine 6.2 H* (0.8-1.3) mg/dL Est Cr Clr Drug Dosing 13.63 mL/min Estimated GFR (MDRD) 9 L (>60) Glucose 141 H (74-106) mg/dL Calcium 7.5 L (8.5-10.1) mg/dL Total Bilirubin 0.6 (0.2-1.0) mg/dL AST 32 (15-37) U/L ALT 31 (12-78) U/L Alkaline Phosphatase 51 (46-116) U/L C-Reactive Protein 10.30 H (0.0-0.3) mg/dL Total Protein 6.4 (6.4-8.2) g/dL Albumin 2.4 L (3.4-5.0) g/dL Globulin 4.0 H (2.3-3.5) g/dL Albumin/Globulin Ratio 0.6 L (1.2-2.2) Result Diagrams: 12/26/20 04:25 12/26/20 04:25 Juan Results Last 24 hrs: Microbiology 12/23/20 18:43 Gram Stain - Final Sputum - Other Respiratory Culture - Preliminary Pseudomonas Aeruginosa Sepsis Event Note - Evaluation Sepsis Screening Result: Possible Sepsis Risk - Focused Exam Vital Signs: Vital Signs Temp Pulse Resp BP Pulse Ox 12/26/20 13:00 76 19 143/68 H 93 L 12/26/20 12:00 97 25 H 145/80 H 92 L 12/26/20 11:45 115 H 30 H 165/63 H 88 L 12/26/20 11:40 103 H 30 H 165/63 H 90 L 12/26/20 10:24 24 H 91 L 12/26/20 10:00 93 24 H 144/68 H 91 L 12/26/20 09:00 98 F 83 16 134/60 12/26/20 08:00 71 15 138/61 93 L 12/26/20 07:00 66 20 132/63 93 L 12/26/20 06:00 98.3 F 62 20 116/68 93 L 12/26/20 05:00 98.4 F 81 20 120/63 93 L 12/26/20 04:00 66 20 130/64 93 L 12/26/20 03:00 98.1 F 62 19 123/68 92 L 12/26/20 02:00 98.3 F 65 19 125/63 93 L - Problem List Review Problem List Initiated/Reviewed/Updated: Yes - My Orders Last 24 Hours: My Active Orders 12/26/20 17:00 BASIC METABOLIC PANEL,BMP [CHEM] Stat BLOOD GAS ARTERIAL [BG] Stat 12/27/20 05:00 Chest 1V Frontal [CR] DAILY BLOOD GAS ARTERIAL [BG] Timed CBC WITH AUTO DIFF [HEME] Timed COMPREHENSIVE METABOLIC PN,CMP [CHEM] Timed MAGNESIUM [CHEM] Timed 12/27/20 05:11 CRP [C-REACTIVE PROTEIN] [CHEM] AM D Dimer [D-DIMER QUANTITATIVE] [COAG] AM 12/28/20 05:00 Chest 1V Frontal [CR] DAILY 12/29/20 05:00 Chest 1V Frontal [CR] DAILY 12/30/20 05:00 Chest 1V Frontal [CR] DAILY 12/31/20 05:00 Chest 1V Frontal [CR] DAILY - Plan Plan:: ASSESSMENT AND PLAN - Bilateral pneumonia-complicated by acute respiratory failure with hypoxia and septic shock. Off of vasopressors with good improvement in respiratory status. Close to extubation, failed spontaneous breathing trial this morning. -Broad-spectrum antibiotic coverage with levofloxacin, meropenem -Propofol for sedation and lorazepam and or fentanyl for breakthrough agitation -Follow-up sputum culture -Repeat blood gases following ventilator changes and in the morning -Continue steroids COVID-19 positive-unclear timing of symptoms. I suspect Jc was more remote and he had a bacterial pneumonia on the tail end leading to his acute illness currently. -Continue dexamethasone (day 4) -Covid precautions -Additional management as above Acute kidney injury-significant jump in creatinine, today is at 6.2. Continues to make a small amount of urine -Closely monitor urine output -Echocardiogram report pending History of COPD-patient currently intubated and sedated. -Management as above History of atrial fibrillation-not chronically anticoagulated. Heart rate normal. -Rate control as needed -Cardiac monitoring Maintenance issues - -DVT prophylaxis-enoxaparin -GI prophylaxis-PPI -Nutrition-nothing by mouth -Akins catheter-inserted for strict intake and output monitoring in a critical patient Disposition -I anticipate discharge to subacute rehab versus home after the hospital stay Primary care physician -Alma Styles MD
[2020-12-26] MEDS: Heparin Sodium 5,000 UNITS in Sodium Chloride 0.9% 500 ML IV SCH ×2 (15:27→15:28)
[2020-12-26] MEDS: Dexamethasone 4 MG/ML SDV IVPUSH SCH (16:48)
[2020-12-26] MEDS: Enoxaparin 30 MG/0.3 ML Syringe SUBCUT SCH (21:09)
[2020-12-27] MEDS: propofoL 100 ML IV SCH ×4 (01:38→10:33)
[2020-12-27] MEDS: Albumin Human 25 GM in Premix Bag 1 BAG IV SCH ×2 (01:39→09:28)
[2020-12-27] MEDS: Nystatin Susp 100,000 Unit/ML 5 ML UD Cup PO SCH ×2 (05:45→09:31)
[2020-12-27] MEDS ORDERED: Sodium Polystyrene Sulfonate 15 GM/60 ML Susp 60 ML Bot RECTAL ONE (06:18)
--- NOTE | 2020-12-27 09:08 | CR ---
CHEST: Portable 12/27/2020 at 4:25 AM CLINICAL HISTORY:Respiratory failure, intubation COMPARISON:12/25/2020 FINDINGS: Endotracheal tube is in the midtrachea. There is a right jugular catheter in superior vena cava. Diffuse bilateral pulmonary infiltrates persist. There is similar to recent prior study. There may be a small left effusion. Impression: Endotracheal tube in mid trachea. Persistent diffuse bilateral pulmonary infiltrates similar to recent prior study
[2020-12-27] MEDS: Pantoprazole 40 MG Vial IV SCH (09:29)
[2020-12-27] MEDS ORDERED: Famotidine 20 MG/2 ML SDV IVPUSH SCH (10:00)
--- NOTE | 2020-12-27 10:00 | PCM.DCSUM1 ---
Discharge Summary - Hospital Course Brief History: Mr. Steel is a 65-year-old gentleman who was admitted through the emergency department with septic shock and acute hypoxic respiratory failure secondary to bilateral pneumonia and underlying Covid 19. - Discharge Data Discharge Date: 12/27/20 Discharge Disposition: DC/Tfer to Acute Hospital 02 Condition: Serious - Referral to Home Health Primary Care Physician: PCP None - Discharge Diagnosis/Problem(s) (1) Acute kidney injury SNOMED Code(s): 14377161, 01252082 ICD Code: N17.9 - ACUTE KIDNEY FAILURE, UNSPECIFIED Status: Acute Current Visit: Yes (2) Acute respiratory failure with hypoxia SNOMED Code(s): 95438054, 945510837 ICD Code: J96.01 - ACUTE RESPIRATORY FAILURE WITH HYPOXIA Status: Acute Current Visit: Yes (3) Bilateral pneumonia SNOMED Code(s): 807304717 ICD Code: J18.9 - PNEUMONIA, UNSPECIFIED ORGANISM Status: Acute Current Visit: Yes Qualifiers: Pneumonia type: due to unspecified organism Lung location: unspecified part of lung Qualified Code(s): J18.9 - Pneumonia, unspecified organism (4) Pneumonia due to COVID-19 virus SNOMED Code(s): 676022147468504003 ICD Code: U07.1 - COVID-19; J12.82 - PNEUMONIA DUE TO CORONAVIRUS DISEASE 2019 Status: Acute Current Visit: Yes (5) Septic shock SNOMED Code(s): 76167980 ICD Code: A41.9 - SEPSIS, UNSPECIFIED ORGANISM; R65.21 - SEVERE SEPSIS WITH SEPTIC SHOCK Status: Acute Current Visit: Yes (6) Atrial fibrillation SNOMED Code(s): 16539632 ICD Code: I48.91 - UNSPECIFIED ATRIAL FIBRILLATION Status: Chronic Current Visit: Yes Qualifiers: Atrial fibrillation type: unspecified Qualified Code(s): I48.91 - Unspecified atrial fibrillation (7) Chronic obstructive pulmonary disease (COPD) SNOMED Code(s): 73451010 ICD Code: J44.9 - CHRONIC OBSTRUCTIVE PULMONARY DISEASE, UNSPECIFIED Status: Chronic Current Visit: No Qualifiers: COPD type: unspecified COPD Qualified Code(s): J44.9 - Chronic obstructive pulmonary disease, unspecified (8) Morbid obesity SNOMED Code(s): 928519183 ICD Code: E66.01 - MORBID (SEVERE) OBESITY DUE TO EXCESS CALORIES Status: Chronic Current Visit: No - Patient Summary/Data Hospital Course: Mr. Steel is a 65-year-old gentleman who was admitted through the emergency department to the intensive care unit with septic shock and acute hypoxic respiratory failure secondary to bilateral pneumonia and COVID-19 infection. He was intubated and sedated and unable to provide any history. Per report from the emergency room his family was unable to get in touch him so they called for a welfare check. When law enforcement did gain entrance to the building they found him hypoxic and unresponsive. There was a difference in the size of his pupils and there was concern for stroke. He was brought to the emergency room for further evaluation. He was quite hypoxic with borderline saturations on 10 L of oxygen. Initial head CT did not show any evidence for bleed or obvious stroke. He continued to deteriorate in the emergency room and was emergently intubated. Additional work-up revealed bilateral pneumonias left greater than right as well as significant hypoxia. The patient had a declining blood pressure and norepinephrine was initiated. Broad-spectrum antibiotics were initiated. The emergency room did make attempts to transfer the patient to a higher level of care but no ICU beds are available in [place], [place], [place] or [facility]. The patient will be admitted to our intensive care unit for management of bilateral pneumonia with septic shock. He is also Covid positive though it is unclear about the timing of this infection and the actual contribution to his respiratory illness at the time of admission. He was continued on the ventilator throughout his hospital stay but did show improvement in his respiratory status. At the time of transfer he was on assist control of 20, PEEP of 8, FiO2 of 35%. On the day prior to transfer a spontaneous breathing trial was performed which he did fail because of decreased oxygen saturations into the mid 80s. Hemodynamically he is stabilized and was tapered off of IV norepinephrine. IV fluids were minimized but he remained in a positive fluid balance despite use of IV diuretics on the second hospital day. He was treated with propofol for ongoing IV sedation. Antibiotic therapy with ceftazidime and levofloxacin was continued throughout his hospital stay and doses were adjusted based on his renal function. He was started on IV Decadron because of his positive Covid status and this was continued throughout his hospitalization. He received DVT prophylaxis and stress ulcer prophylaxis. He remained in atrial fibrillation with adequate rate control throughout his hospital stay. He did develop progressive increased anion gap metabolic acidosis which was felt to be secondary to his progressive renal failure. Creatinine was mildly elevated at the time of admission at 1.5. Creatinine increased daily and was 7.2 at the time of transfer. On the day prior to transfer potassium level was noted to be mildly elevated at 5.5. He did receive rectal Kayexalate and this decreased to 5.2 on the evening prior to transfer. On the morning of transfer his creatinine had increased to 7.2 with a potassium of 6.2. EKG was obtained and showed no evidence of significant QRS prolongation. With increased creatinine and potassium decision was made to proceed with transfer to a tertiary care center. He has been accepted in transfer at the [facility] in [facility] and will be transferred via [facility] ambulance. - Patient Instructions Diet: NPO Activity: Bedrest - Discharge Plan *PRESCRIPTION DRUG MONITORING PROGRAM REVIEWED*: Not Applicable *COPY OF PRESCRIPTION DRUG MONITORING REPORT IN PATIENT DANELLE: Not Applicable Home Medications: Home Meds Budesonide/Formoterol [Symbicort 160-4.5 MCG] 2 puff INH BID 12/12/18 [History] Albumin Human [Albumin 25%] 25 gm IV Q8H bag 12/27/20 [Rx] Dimethicone/Zinc Oxide [Rash Relief-Zinc Oxide] 0 gm TOP ASDIRECTED PRN bottle 12/27/20 [Rx] Enoxaparin [Lovenox] 30 mg SUBCUT Q24H syringe 12/27/20 [Rx] Famotidine [Pepcid] 20 mg IVPUSH Q12H sdv 12/27/20 [Rx] Levofloxacin/Dextrose 5%-Water [Levaquin in D5W 500 MG/100 ML] 500 mg IV Q48H bag 12/27/20 [Rx] cefTAZidime Pentahydrate [Fortaz] 1 gm IV Q24H vial 12/27/20 [Rx] dexAMETHasone [Decadron] 6 mg IVPUSH Q24H sdv 12/27/20 [Rx] propofoL [Diprivan 100 ML] See Protocol IV TITRATE vial 12/27/20 [Rx] Oxygen Therapy Mode: Mechanical Ventilation Referrals: PCP,None [Primary Care Provider] - - Discharge Summary/Plan Comment DC Time >30 min.: Yes (60 minutes of time spent arranging transfer, ongoing care, and discussion w) Total # of Minutes for Discharge Time: 60 - Patient Data Vitals - Most Recent: Last Vital Signs Temp 98.5 F 12/27/20 09:00 Pulse 80 12/27/20 06:00 Resp 21 H 12/27/20 09:00 BP 135/61 12/27/20 09:00 Pulse Ox 93 L 12/27/20 09:00 Weight - Most Recent: 336 lb 11.2 oz I&O - Last 24 hours: Intake & Output 12/26/20 12/27/20 12/27/20 22:59 06:59 14:59 Intake Total 1078 777 Output Total 200 225 Balance 878 552 Lab Results - Last 24 hrs: Laboratory Results - last 24 hr 12/26/20 12/26/20 12/27/20 Range/Units 17:00 17:00 00:45 WBC (4.5-11.0) K/uL RBC (4.30-5.90) M/uL Hgb (12.0-15.0) g/dL Hct (40.0-54.0) % MCV (80-98) fL MCH (27-31) pg MCHC (32-36) % Plt Count (150-400) K/uL Add Manual Diff Neutrophils % (Manual) (36-66) % Band Neutrophils % (5-11) % Lymphocytes % (Manual) (24-44) % Monocytes % (Manual) (2-6) % Eosinophils % (Manual) (2-4) % D-Dimer, Quantitative 3901.94 H (0.0-500.0) ng/mL Puncture Site line ABG pH 7.272 L (7.350-7.450) ABG pCO2 32.8 L (35.0-42.0) mmHg ABG pO2 79.6 (75.0-100.0) mmHg ABG HCO3 14.6 L (22.0-26.0) mmol/L ABG Total CO2 13.8 L (23.0-27.0) mmol/L ABG O2 Saturation 94.3 L (95.0-98.0) % ABG O2 Content 14.0 L (15.0-23.0) %vol ABG Base Excess -10.9 mm/L ABG Hemoglobin 10.8 L (13.5-18.0) g/dL ABG Oxyhemoglobin 91.8 % ABG Carboxyhemoglobin 1.4 (0.0-1.6) % ABG Methemoglobin 1.3 % Fredrick Test TNP O2 Delivery Device Nasal cannula Oxygen Flow Rate L Sodium 144 (140-148) mmol/L Potassium 5.2 (3.6-5.2) mmol/L Chloride 110 H (100-108) mmol/L Carbon Dioxide 15 L (21-32) mmol/L Anion Gap 24.2 H (5.0-14.0) mmol/L BUN 113 H* (7-18) mg/dL Creatinine 6.9 H* (0.8-1.3) mg/dL Est Cr Clr Drug Dosing 12.25 mL/min Estimated GFR (MDRD) 8 L (>60) Glucose 111 H (74-106) mg/dL Calcium 7.6 L (8.5-10.1) mg/dL Magnesium (1.8-2.4) mg/dL Total Bilirubin (0.2-1.0) mg/dL AST (15-37) U/L ALT (12-78) U/L Alkaline Phosphatase (46-116) U/L C-Reactive Protein (0.0-0.3) mg/dL Total Protein (6.4-8.2) g/dL Albumin (3.4-5.0) g/dL Globulin (2.3-3.5) g/dL Albumin/Globulin Ratio (1.2-2.2) 12/27/20 12/27/20 12/27/20 Range/Units 04:45 04:45 04:45 WBC 11.1 H (4.5-11.0) K/uL RBC 3.66 L (4.30-5.90) M/uL Hgb 10.6 L (12.0-15.0) g/dL Hct 34.7 L (40.0-54.0) % MCV 95 (80-98) fL MCH 29 (27-31) pg MCHC 31 L (32-36) % Plt Count 320 (150-400) K/uL Add Manual Diff Yes Neutrophils % (Manual) 77 H (36-66) % Band Neutrophils % 5 (5-11) % Lymphocytes % (Manual) 10 L (24-44) % Monocytes % (Manual) 6 (2-6) % Eosinophils % (Manual) 2 (2-4) % D-Dimer, Quantitative (0.0-500.0) ng/mL Puncture Site Line ABG pH 7.246 L (7.350-7.450) ABG pCO2 31.4 L (35.0-42.0) mmHg ABG pO2 80.9 (75.0-100.0) mmHg ABG HCO3 13.2 L (22.0-26.0) mmol/L ABG Total CO2 12.5 L (23.0-27.0) mmol/L ABG O2 Saturation 94.3 L (95.0-98.0) % ABG O2 Content 14.0 L (15.0-23.0) %vol ABG Base Excess -12.7 mm/L ABG Hemoglobin 10.8 L (13.5-18.0) g/dL ABG Oxyhemoglobin 92.0 % ABG Carboxyhemoglobin 1.1 (0.0-1.6) % ABG Methemoglobin 1.3 % Fredrick Test O2 Delivery Device Nasal cannula Oxygen Flow Rate L Sodium 147 (140-148) mmol/L Potassium 6.2 H* (3.6-5.2) mmol/L Chloride 113 H (100-108) mmol/L Carbon Dioxide 15 L (21-32) mmol/L Anion Gap 25.2 H (5.0-14.0) mmol/L BUN 122 H* (7-18) mg/dL Creatinine 7.4 H* (0.8-1.3) mg/dL Est Cr Clr Drug Dosing 11.42 mL/min Estimated GFR (MDRD) 7 L (>60) Glucose 129 H (74-106) mg/dL Calcium 7.6 L (8.5-10.1) mg/dL Magnesium 3.1 H (1.8-2.4) mg/dL Total Bilirubin 0.8 (0.2-1.0) mg/dL AST 33 (15-37) U/L ALT 30 (12-78) U/L Alkaline Phosphatase 49 (46-116) U/L C-Reactive Protein (0.0-0.3) mg/dL Total Protein 6.5 (6.4-8.2) g/dL Albumin 3.0 L (3.4-5.0) g/dL Globulin 3.5 (2.3-3.5) g/dL Albumin/Globulin Ratio 0.9 L (1.2-2.2) 12/27/20 Range/Units 04:45 WBC (4.5-11.0) K/uL RBC (4.30-5.90) M/uL Hgb (12.0-15.0) g/dL Hct (40.0-54.0) % MCV (80-98) fL MCH (27-31) pg MCHC (32-36) % Plt Count (150-400) K/uL Add Manual Diff Neutrophils % (Manual) (36-66) % Band Neutrophils % (5-11) % Lymphocytes % (Manual) (24-44) % Monocytes % (Manual) (2-6) % Eosinophils % (Manual) (2-4) % D-Dimer, Quantitative (0.0-500.0) ng/mL Puncture Site ABG pH (7.350-7.450) ABG pCO2 (35.0-42.0) mmHg ABG pO2 (75.0-100.0) mmHg ABG HCO3 (22.0-26.0) mmol/L ABG Total CO2 (23.0-27.0) mmol/L ABG O2 Saturation (95.0-98.0) % ABG O2 Content (15.0-23.0) %vol ABG Base Excess mm/L ABG Hemoglobin (13.5-18.0) g/dL ABG Oxyhemoglobin % ABG Carboxyhemoglobin (0.0-1.6) % ABG Methemoglobin % Fredrick Test O2 Delivery Device Oxygen Flow Rate L Sodium (140-148) mmol/L Potassium (3.6-5.2) mmol/L Chloride (100-108) mmol/L Carbon Dioxide (21-32) mmol/L Anion Gap (5.0-14.0) mmol/L BUN (7-18) mg/dL Creatinine (0.8-1.3) mg/dL Est Cr Clr Drug Dosing mL/min Estimated GFR (MDRD) (>60) Glucose (74-106) mg/dL Calcium (8.5-10.1) mg/dL Magnesium (1.8-2.4) mg/dL Total Bilirubin (0.2-1.0) mg/dL AST (15-37) U/L ALT (12-78) U/L Alkaline Phosphatase (46-116) U/L C-Reactive Protein 6.77 H (0.0-0.3) mg/dL Total Protein (6.4-8.2) g/dL Albumin (3.4-5.0) g/dL Globulin (2.3-3.5) g/dL Albumin/Globulin Ratio (1.2-2.2) TYLER Results - Last 24 hrs: Microbiology 12/23/20 18:43 Gram Stain - Final Sputum - Other Respiratory Culture - Final Pseudomonas Aeruginosa Med Orders - Current: Current Medications Acetaminophen (Acetaminophen 325 Mg Tab) 650 mg PO Q4H PRN PRN Reason: Pain (Mild 1-3)/fever Acetaminophen (Acetaminophen 650 Mg Supp) 650 mg RECTAL Q4H PRN PRN Reason: Mild pain/fever Dexamethasone (Dexamethasone 4 Mg/Ml Sdv) 6 mg IVPUSH Q24H [facility] Stop: 01/01/21 16:01 Last Admin: 12/26/20 16:48 Dose: 6 mg Documented by: Dimethicone/Zinc Oxide (Dimethicone 20%/Zinc Oxide 25% 56 Gm [place] Bottle) 0 gm TOP ASDIRECTED PRN PRN Reason: Rash Last Admin: 12/25/20 09:58 Dose: 1 applic Documented by: Enoxaparin Sodium (Enoxaparin 30 Mg/0.3 Ml Syringe) 30 mg SUBCUT Q24H [facility] Last Admin: 12/26/20 21:09 Dose: 30 mg Documented by: Famotidine (Famotidine 20 Mg/2 Ml Sdv) 20 mg IVPUSH Q12H [facility] Fentanyl (Fentanyl 100 Mcg/2 Ml Sdv) 25 mcg IVPUSH Q2H PRN PRN Reason: Pain Last Admin: 12/26/20 20:57 Dose: 25 mcg Documented by: Heparin Sodium (Porcine) (Heparin Sodium 100 Units/Ml 5 Ml Syringe) 500 units FLUSH ASDIRECTED PRN PRN Reason: IV Use Last Admin: 12/27/20 05:45 Dose: 500 units Documented by: Propofol (Diprivan 100 Ml) 100 mls @ 3.81 mls/hr IV TITRATE [facility]; Protocol Last Admin: 12/27/20 07:34 Dose: 45 mcg/kg/min, 34.292 mls/hr Documented by: Heparin Sodium (Porcine) 5,000 (units/ Sodium Chloride) 501 mls @ 1 mls/hr IV ASDIRECTED [facility] Last Admin: 12/26/20 15:28 Dose: 1 mls/hr Documented by: Sodium Chloride (Normal Saline) 1,000 mls @ 25 mls/hr IV ASDIRECTED [facility] Last Admin: 12/25/20 20:08 Dose: 25 mls/hr Documented by: Heparin Sodium (Porcine) 5,000 (units/ Sodium Chloride) 501 mls @ 1 mls/hr IV ASDIRECTED [facility] Last Admin: 12/26/20 15:27 Dose: 1 mls/hr Documented by: Albumin Human 25 gm/ Premix 100 mls @ 25 mls/hr IV Q8H [facility] Stop: 12/28/20 10:01 Last Admin: 12/27/20 09:28 Dose: 25 mls/hr Documented by: Ceftazidime 1 gm/ Sodium (Chloride) 50 mls @ 100 mls/hr IV Q24H [facility] Last Admin: 12/27/20 08:00 Dose: 100 mls/hr Documented by: Levofloxacin/Dextrose 500 mg/ (Premix) 100 mls @ 100 mls/hr IV Q48H [facility] Last Admin: 12/25/20 20:09 Dose: 100 mls/hr Documented by: Lorazepam (Lorazepam 2 Mg/Ml Sdv) 0.5 mg IVPUSH Q4H PRN PRN Reason: Nausea/Vomiting Nystatin (Nystatin Susp 100,000 Unit/Ml 5 Ml Ud Cup) 5 ml PO QID [facility] Last Admin: 12/27/20 09:31 Dose: 5 ml Documented by: Ondansetron HCl (Ondansetron 4 Mg/2 Ml Sdv) 4 mg IV Q6H PRN PRN Reason: Nausea/Vomiting Ondansetron HCl (Ondansetron 4 Mg Tab.Dis) 4 mg PO Q6H PRN PRN Reason: Nausea able to take PO Sodium Chloride (Sodium Chloride 0.9% 10 Ml Syringe) 10 ml FLUSH ASDIRECTED PRN PRN Reason: Keep Vein Open Discontinued Medications Bumetanide 2.5 mg/ Bumetanide (0.5 mg) 3 mg IVPUSH ONETIME ONE Stop: 12/24/20 14:01 Last Admin: 12/24/20 14:12 Dose: 3 mg Documented by: Bumetanide (Bumetanide 2.5 Mg/10 Ml Mdv) 4 mg IVPUSH ONETIME ONE Stop: 12/24/20 18:01 Last Admin: 12/24/20 17:55 Dose: 4 mg Documented by: Dexamethasone (Dexamethasone 4 Mg/Ml Sdv) 6 mg IVPUSH DAILY [facility] Stop: 01/01/21 09:01 Last Admin: 12/23/20 16:32 Dose: 6 mg Documented by: Enoxaparin Sodium (Enoxaparin 40 Mg/0.4 Ml Syringe) 40 mg SUBCUT Q24H [facility] Last Admin: 12/24/20 20:36 Dose: 40 mg Documented by: Furosemide (Furosemide 40 Mg/4 Ml Vial) 40 mg IVPUSH NOW ONE Stop: 12/24/20 11:01 Last Admin: 12/24/20 11:22 Dose: 40 mg Documented by: Heparin Sodium (Porcine) (Heparin Sodium 5,000 Units/Ml Vial) Confirm Administered Dose 5,000 units .ROUTE .STK-MED ONE Stop: 12/23/20 14:51 Last Admin: 12/23/20 16:26 Dose: Not Given Documented by: Propofol (Diprivan 100 Ml) Confirm Administered Dose 100 mls @ as directed .ROUTE .STK-MED ONE Stop: 12/23/20 14:35 Last Admin: 12/23/20 14:39 Dose: Not Given Documented by: Sodium Chloride (Normal Saline) 100 mls @ 3 mls/sec IV ONETIME ONE Stop: 12/23/20 14:49 Last Admin: 12/23/20 16:26 Dose: Not Given Documented by: Remdesivir 200 mg/ Sodium (Chloride) 250 mls @ 250 mls/hr IV ONETIME ONE Stop: 12/23/20 14:57 Last Admin: 12/23/20 16:42 Dose: Not Given Documented by: Ceftazidime 1 gm/ Sodium (Chloride) 50 mls @ 100 mls/hr IV Q8H [facility] Stop: 12/24/20 09:30 Last Admin: 12/24/20 07:55 Dose: 100 mls/hr Documented by: Norepinephrine Bitartrate 8 mg (/ Dextrose/Water) 258 mls @ 3.87 mls/hr IV TITRATE [facility]; Protocol Norepinephrine Bitartrate 8 mg (/ Dextrose/Water) 250 mls @ 3.75 mls/hr IV TITRATE [facility]; Protocol Last Infusion: 12/25/20 06:41 Dose: 0 mcg/min, 0 mls/hr Documented by: Vancomycin HCl 2 gm/ Sodium (Chloride) 500 mls @ 250 mls/hr IV Q12H [facility] Last Admin: 12/24/20 04:56 Dose: 250 mls/hr Documented by: Levofloxacin/Dextrose 750 mg/ (Premix) 150 mls @ 100 mls/hr IV Q24H [facility] Last Admin: 12/23/20 19:48 Dose: 100 mls/hr Documented by: Sodium Chloride (Normal Saline) 500 mls @ 500 mls/hr IV ASDIRECTED [facility] Stop: 12/24/20 00:46 Last Admin: 12/24/20 00:00 Dose: 500 mls/hr Documented by: Vasopressin 100 units/ (Dextrose/Water) 255 mls @ 1.53 mls/hr IV TITRATE [facility]; Protocol Stop: 12/24/20 17:45 Last Titration: 12/24/20 16:29 Dose: 0 units/min, 0 mls/hr Documented by: Ceftazidime 1 gm/ Sodium (Chloride) 50 mls @ 100 mls/hr IV Q12H [facility] Last Admin: 12/25/20 07:23 Dose: 100 mls/hr Documented by: Levofloxacin/Dextrose 750 mg/ (Premix) 150 mls @ 100 mls/hr IV Q48H [facility] Vancomycin HCl 2 gm/ Sodium (Chloride) 500 mls @ 250 mls/hr IV Q24H [facility] Last Admin: 12/25/20 05:14 Dose: 250 mls/hr Documented by: Vasopressin 40 units/ Dextrose (/Water) 102 mls @ 1.53 mls/hr IV TITRATE [facility]; Protocol Sodium Chloride (Normal Saline) 500 mls @ 500 mls/hr IV ASDIRECTED [facility] Stop: 12/24/20 17:31 Last Admin: 12/24/20 16:47 Dose: 500 mls/hr Documented by: Iopamidol (Iopamidol 755 Mg/Ml 100 Ml Bottle) 100 ml IV . DIRECTED [facility] Lorazepam (Lorazepam 2 Mg/Ml Sdv) Confirm Administered Dose 2 mg .ROUTE .STK-MED ONE Stop: 12/23/20 15:22 Last Admin: 12/23/20 15:49 Dose: Not Given Documented by: Lorazepam (Lorazepam 2 Mg/Ml Sdv) 2 mg IVPUSH ONETIME ONE Stop: 12/23/20 15:27 Last Admin: 12/23/20 15:28 Dose: 2 mg Documented by: Pantoprazole Sodium (Pantoprazole 40 Mg Vial) 40 mg IV Q12H [facility] Last Admin: 12/27/20 09:29 Dose: 40 mg Documented by: Propofol (Propofol 200 Mg/20 Ml Sdv) Confirm Administered Dose 200 mg .ROUTE .STK-MED ONE Stop: 12/23/20 15:03 Rocuronium [place] (Rocuronium 50 Mg/5 Ml Vial) Confirm Administered Dose 50 mg .ROUTE .STK-MED ONE Stop: 12/23/20 15:03 Sodium Chloride (Sodium Chloride 0.9% 10 Ml Syringe) 10 ml FLUSH ONETIME PRN PRN Reason: PER RADIOLOGY PROTOCOL Sodium Polystyrene Sulfonate (Sodium Polystyrene Sulfonate 15 Gm/60 Ml Susp 60 Ml Bot) 30 gm RECTAL NOW ONE Stop: 12/26/20 09:01 Last Admin: 12/26/20 13:54 Dose: 30 gm Documented by: Sodium Polystyrene Sulfonate (Sodium Polystyrene Sulfonate 15 Gm/60 Ml Susp 60 Ml Bot) 45 gm RECTAL NOW ONE Stop: 12/27/20 06:19 Last Admin: 12/27/20 07:34 Dose: 45 gm Documented by: Succinylcholine Chloride (Succinylcholine 200 Mg/10 Ml Mdv) Confirm Administered Dose 0 mg .ROUTE .STK-MED ONE Stop: 12/23/20 15:03 - Exam General: Reports: Sedated Lungs: Reports: Decreased Breath Sounds, Crackles, Rhonchi. Denies: Wheezing Cardiovascular: Reports: Regular Rate, No Murmurs, Irregular Rhythm GI/Abdominal Exam: Soft, Non-Tender, No Organomegaly, Other (Very large midline hernia) Extremities: Non-Tender, No Pedal Edema
[2020-12-28] MEDS ORDERED: Famotidine 20 MG/2 ML SDV IVPUSH SCH (09:00)
--- NOTE | 2020-12-30 17:54 | PCM.EKG ---
#1 Interpretation EKG Date: 12/27/20 Time: 08:10 Rhythm: A-Fib Rate (Beats/Min): 90 [place]: Normal P-Wave: Absent QRS: Other (Delayed R wave progression precordial leads, low voltage throughout, poor technical quality) ST-T: Normal QT: Prolonged EKG Interpretation Comments: Frequent PVCs, prolonged QT interval
== END 2020-12-27 11:04 | DRG 871 ==
LOC: JP.ED 14:09 → JP.ICU 16:39
PROVIDERS: ADMIT Internal Medicine; ATTEND Internal Medicine
PROC: 02HV33Z Insertion of Infusion Device into Superior Vena Cava, Percutaneous Approach (ICD-10-PCS; principal; 2020-12-23)
PROC: B548ZZA Ultrasonography of Superior Vena Cava, Guidance (ICD-10-PCS; 2020-12-23)
PROC: 3E033XZ Introduction of Vasopressor into Peripheral Vein, Percutaneous Approach (ICD-10-PCS; 2020-12-23)
PROC: 0BH17EZ Insertion of Endotracheal Airway into Trachea, Via Natural or Artificial Opening (ICD-10-PCS; 2020-12-23)
PROC: 03HB33Z Insertion of Infusion Device into Right Radial Artery, Percutaneous Approach (ICD-10-PCS; 2020-12-23)
PROC: 5A1945Z Respiratory Ventilation, 24-96 Consecutive Hours (ICD-10-PCS; 2020-12-23)
PROC: 3E0333Z Introduction of Anti-inflammatory into Peripheral Vein, Percutaneous Approach (ICD-10-PCS; 2020-12-23)
DX: A41.9 Sepsis, unspecified organism (principal); J18.9 Pneumonia, unspecified organism; R65.21 Severe sepsis with septic shock; U07.1 COVID-19; J96.01 Acute respiratory failure with hypoxia; I48.91 Unspecified atrial fibrillation; J12.82 Pneumonia due to coronavirus disease 2019; J15.9 Unspecified bacterial pneumonia; N17.9 Acute kidney failure, unspecified; G89.29 Other chronic pain; I48.20 Chronic atrial fibrillation, unspecified; J44.0 Chronic obstructive pulmonary disease with (acute) lower respiratory infection; Z68.41 Body mass index [BMI] 40.0-44.9, adult; Z79.51 Long term (current) use of inhaled steroids; E66.01 Morbid (severe) obesity due to excess calories; M19.90 Unspecified osteoarthritis, unspecified site; M54.9 Dorsalgia, unspecified; Z79.82 Long term (current) use of aspirin; Z87.891 Personal history of nicotine dependence; Z79.899 Other long term (current) drug therapy; I10 Essential (primary) hypertension
CPT/HCPCS: 36415; 51702; 70450 ×2; 71045 ×4; 80053; 81001; 82550; 82803 ×2; 83605; 84145; 84484; 85025; 86140; 87635; 96375; 99291; J0713; J1100; J2060; J2704 ×2; J7060; 80048; 83735; 85027; 85379; 87070; 87077; 87186; 87205; 93005; 93306; 94003; 96365; 96368; 99223; 99232; 99239; A9270-GY; C9113; J0330; J1642; J1644; J1650; J1940; J1956; J3010; J3370; J3490; J7030; J7040; P9047; U0002